=== PATIENT | female | born 1930 | race Two or more races ===

== ENCOUNTER 2017-04-24 21:21 | Inpatient (IN) | payer OTHER ==
[~2017-04-24] VITALS: Ht 149.9 cm; Wt 54.4 kg
[~2017-04-24 21:21] MED LIST: Acetaminophen PO; Benazepril Hcl PO; TRAM50TA2 PO
--- NOTE | 2017-04-24 22:45 | NUR ---
Pt c/o cough, sore throat, congestion x 3 days. Pt denies CP, SOB, dizziness, n/v, no other complaints, no distress noted.
[2017-04-24] MEDS ORDERED: CELE200C PO (23:09)
[2017-04-24 23:19] LABS: BASOPHILS % (AUTO) 0.3 % (0.0-2.0); HEMOGLOBIN 12.9 g/dL (10.9-14.3); LYMPHOCYTES # (AUTO) 0.6 K/uL (20.0-40.0); LYMPHOCYTES % (AUTO) 9.8 % (20.5-51.5); MEAN CORPUSCULAR HEMOGLOBIN 31.3 uug (24.7-32.8); MEAN CORPUSCULAR HGB CONC 34 g/dL (32.3-35.6); MONOCYTES # (AUTO) 0.5 K/uL (2.0-10.0); MONOCYTES % (AUTO) 7.5 % (0.0-11.0); NEUTROPHILS # (AUTO) 5.3 K/uL (1.8-8.9); NEUTROPHILS % (AUTO) 82.4 % (38.5-71.5); PLATELET COUNT (AUTO) 92 K/uL (179-408); RED BLOOD CELL COUNT(AUTO) 4.13 MIL/uL (3.63-4.92); WHITE BLOOD COUNT (AUTO) 6.4 K/uL (3.8-11.8)
[2017-04-24 23:27] LABS: CARBON DIOXIDE 23 mmol/L (21-32); CHLORIDE 105 mmol/L (98-107); GLUCOSE 101 mg/dL (74-106); POTASSIUM 3.9 mmol/L (3.5-5.1); UREA NITROGEN, BLOOD 22 mg/dL (7-18)
[2017-04-24 23:41] LABS: ALANINE AMINOTRANSFERASE 20 U/L (14-59); ALKALINE PHOSPHATASE 78 U/L (50-136); ASPARTATE AMINOTRANSFERASE 29 U/L (15-37); BILIRUBIN,DIRECT 0.1 mg/dL (0.0-0.2); BILIRUBIN,TOTAL 0.5 mg/dL (0.2-1.0); TOTAL PROTEIN, SERUM 6.8 g/dL (6.4-8.2)
[2017-04-25] MEDS ORDERED: ASPIRIN 325 MG TABLET ONE (00:22)
[2017-04-25 00:30] LABS: BAND % (MANUAL) 13 % (0-10); LYMPHOCYTES % (MANUAL) 7 % (20-40); MONOCYTES % (MANUAL) 8 % (2-10); NEUTROPHILS % (MANUAL) 72 % (42-75)
[2017-04-25 00:34] LABS: *BILIRUBIN,URIN NEGATIVE (NEGATIVE); *BLOOD, URINE 1+ (NEGATIVE); *CLARITY,URINE CLEAR (CLEAR); *COLOR,URINE STRAW (YELLOW); *KETONES,URINE NEGATIVE (NEGATIVE); *PROTEIN,URINE NEGATIVE (NEGATIVE); *UROBILINOGEN,URINE 0.2 E.U./dl (NORMAL); LEUKOCYTE ESTERASE ,URINE NEGATIVE (NEGATIVE); NITRITE, URINE NEGATIVE (NEGATIVE); PH,URINE 5.5 (5.0-8.0); UGLUCOSE NEGATIVE (NEGATIVE)
[2017-04-25 00:44] LABS: BACTERIA,URINE MANY /HPF (NONE SEEN); RBC,URINE 0-3 /HPF (0-3); SQUAMOUS EPITHELIAL CELL,UR FEW /HPF (NONE SEEN)
[2017-04-25] MEDS ORDERED: LEVOFLOXACIN 750 MG/D5W 150 ML PIGGYBACK IV ONE (00:45)
[2017-04-25] MEDS ORDERED: LEVOFLOXACIN 750MG/D5W 150 ML IV ONE (01:09)
--- NOTE | 2017-04-25 01:10 | NUR ---
Gave report to Mayelin.
[2017-04-25] MEDS ORDERED: LEVOFLOXACIN 500 MG/D5W 500 MG in PREMIXED 1 EACH IV SCH (01:15)
[2017-04-25] MEDS ORDERED: ASPIRIN 325 MG TABLET PO ONE ×2 (01:15)
[2017-04-25] MEDS ORDERED: ONDANSETRON 4 MG/2 ML VIAL IV PRN (01:15)
[2017-04-25] MEDS ORDERED: Medication Not On Formulary EA ([Acetaminophen] (Tylenol) 650 MG) PO PRN (01:15)
[2017-04-25] MEDS ORDERED: MAGNESIUM HYDROXIDE 30 ML LIQUID UDC PO PRN (01:15)
[2017-04-25] MEDS ORDERED: ACETAMINOPHEN 325 MG TABLET PO PRN (01:15)
--- NOTE | 2017-04-25 01:40 | NUR ---
Son of pt. Sam Carlin [phone]
[2017-04-25 03:00] VITALS: BP 118/65
--- NOTE | 2017-04-25 03:06 | NUR ---
admitted female with chief complaint of cough,alertx2. telemetry sinus rhythm.oriented to floor by Aide. speaks divehi.oriented to room.
[2017-04-25 04:00] VITALS: BP 117/54
[2017-04-25 07:06] LABS: BASOPHILS % (AUTO) 0.2 % (0.0-2.0); HEMATOCRIT 37.3 % (31.2-41.9); HEMOGLOBIN 12.7 g/dL (10.9-14.3); LYMPHOCYTES % (AUTO) 16.9 % (20.5-51.5); MEAN CORPUSCULAR HEMOGLOBIN 31.4 uug (24.7-32.8); MEAN CORPUSCULAR HGB CONC 34 g/dL (32.3-35.6); MONOCYTES # (AUTO) 0.6 K/uL (2.0-10.0); MONOCYTES % (AUTO) 9.4 % (0.0-11.0); NEUTROPHILS # (AUTO) 4.5 K/uL (1.8-8.9); NEUTROPHILS % (AUTO) 73.5 % (38.5-71.5); PLATELET COUNT (AUTO) 85 K/uL (179-408); RED BLOOD CELL COUNT(AUTO) 4.05 MIL/uL (3.63-4.92); WHITE BLOOD COUNT (AUTO) 6.2 K/uL (3.8-11.8)
[2017-04-25 07:26] LABS: ALANINE AMINOTRANSFERASE 13 U/L (14-59); ALKALINE PHOSPHATASE 68 U/L (50-136); ASPARTATE AMINOTRANSFERASE 28 U/L (15-37); BILIRUBIN,TOTAL 0.6 mg/dL (0.2-1.0); CARBON DIOXIDE 22 mmol/L (21-32); CHLORIDE 107 mmol/L (98-107); CHOLESTEROL 160 mg/dL (<200); GLUCOSE 96 mg/dL (74-106); HDL CHOLESTEROL 91 mg/dL (40-60); MAGNESIUM 1.7 mg/dL (1.8-2.4); PHOSPHOROUS 2.7 mg/dL (2.5-4.9); POTASSIUM 4.4 mmol/L (3.5-5.1); TOTAL PROTEIN, SERUM 6.5 g/dL (6.4-8.2); TRIGLYCERIDES 65 MG/DL (30-150); UREA NITROGEN, BLOOD 20 mg/dL (7-18)
[2017-04-25 07:27] LABS: THYROID STIMULATING HORMONE 0.976 mIU/mL (0.358-3.740)
--- NOTE | 2017-04-25 08:00 | NUR ---
AWAKE ALERT COOPERATIVE WITH LANGUAGE BARRIER FED SELF BREAKFAST WITH FAIR APPETITE.ON ROOM AIR WITH NO SHORTNESS OF BREATH AT THIS TIME.MAX ASSIST ALANA WELL.WILL CONTINUE TO OBSERVE.
[2017-04-25] MEDS ORDERED: CELECOXIB 200 MG CAPSULE PO SCH (09:00)
[2017-04-25] MEDS ORDERED: BENAZEPRIL PO SCH (09:00)
[2017-04-25] MEDS ORDERED: CELECOXIB 200 MG CAPSULE PO PRN (10:45)
[2017-04-25 11:28] VITALS: BP 112/59
[2017-04-25] MEDS: BENAZEPRIL HCL 5 MG TABLET PO SCH ×2 (11:54→21:36)
[2017-04-25] MEDS: METOPROLOL TARTRATE 25 MG TABLET PO SCH ×2 (11:54→21:37)
[2017-04-25] MEDS: ASPIRIN 81 MG TAB.CHEW PO SCH (11:54)
--- NOTE | 2017-04-25 12:30 | NUR ---
MAGNESSIUM LEVEL IS 1.7 PATIENT SEEN AND EXAMINED BY DR GANT WITH REPLACEMENT ORDER AND NOTED.
[2017-04-25] MEDS ORDERED: MAGNESIUM OXIDE 400 MG TABLET PO ONE (13:00)
--- NOTE | 2017-04-25 14:00 | NUR ---
2D ECHO IS 50-55 % EF PATIENT DENIES CHEST PAIN FAMILY AT THE BEDSIDE.
[2017-04-25 16:10] VITALS: BP 146/73
--- NOTE | 2017-04-25 18:08 | NUR ---
RESTING WITH HER SON AT THE BEDSIDE DENIES PAIN OR DISCOMFORTS ON ROOM AIR WITH NO SHORTNESS OF BREATH AMBULATORY WITH HER CANE WITH SLOW STEADY GAIT WILL CONTINUE TO OBSERVE.
[2017-04-25 20:06] VITALS: BP 124/67
[2017-04-25] MEDS ORDERED: DOCUSATE SODIUM 100 MG CAPSULE PO SCH (21:00)
[2017-04-25] MEDS: HYDROCODONE/APAP 5-325MG TABLET PO PRN (21:41)
[2017-04-26] VITALS: BP 102/51
[2017-04-26] MEDS ORDERED: LEVOFLOXACIN 250MG /D5W 250 MG in PREMIXED 1 EACH IV SCH (01:00)
[2017-04-26 04:00] VITALS: BP 94/60
[2017-04-26] MEDS: HYDROCODONE/APAP 5-325MG TABLET PO PRN (05:31)
[2017-04-26 06:52] LABS: CARBON DIOXIDE 23 mmol/L (21-32); CHLORIDE 106 mmol/L (98-107); GLUCOSE 88 mg/dL (74-106); MAGNESIUM 1.9 mg/dL (1.8-2.4); UREA NITROGEN, BLOOD 19 mg/dL (7-18)
[2017-04-26] MEDS: ASPIRIN 81 MG TAB.CHEW PO SCH (08:59)
[2017-04-26] MEDS: METOPROLOL TARTRATE 25 MG TABLET PO SCH (09:00)
[2017-04-26] MEDS: BENAZEPRIL HCL 5 MG TABLET PO SCH (09:01)
--- NOTE | 2017-04-26 09:38 | NUR ---
IN BED EATING BREAKFAST WITH NO SHORTNESS OF BREATH AT THIS TIME SEEMS COMFORTABLE WITH LANGUAGE BARRIER DUE MEDICATIONS GIVEN MADE COMFORTABLE AND WILL CONTINUE TO OBSERVE.
[2017-04-26] MEDS ORDERED: LEVO500T2 PO (10:37)
--- NOTE | 2017-04-26 10:48 | NUR ---
NEW ORDERS NOTED TO DISCHARGE PATIENT HOME TODAY IF OKAY WITH THE HEEL EMERY BUFFER FAMILY HERE AND AWARE.
[2017-04-26 12:18] VITALS: BP 97/57
[2017-04-26 15:16] VITALS: BP 115/63
--- NOTE | 2017-04-26 16:36 | NUR ---
PATIENT SEEN BY THE SHEET METAL WORKER DR NGUYEN WITH OKAY TO DISCHARGE PATIENT HOME TODAY.
--- NOTE | 2017-04-26 17:15 | NUR ---
PATIENT DISCHARGED PICKED UP BY HIS SON IN LAW STATED THAT TANA PATIENTS SON AWARE THAT HE IS PICKING HER UP DISCHARGE INSTRUCTIONS AND PRESCRIPTIONS GIVEN TO PATIENT AND HER SON IN LAW AND WAS INSTRUCTED TO CALL HER EDGE BANDING OFF BEARER FOR A FOLLOW UP APPOINTMENT WITHIN THE NEXT ONE TO TWO WEEKS AND THEY EXPRESSED UNDERSTANDING.
== END 2017-04-26 17:15 | disposition home or self-care (01) | DRG 280 ==
LOC: ER 21:21 → TELE 04-25 01:32 → MED 04-26 14:15
PROVIDERS: ADMIT Internal Medicine; ATTEND Internal Medicine
DX: I21.4 Non-ST elevation (NSTEMI) myocardial infarction (principal); I50.33 Acute on chronic diastolic (congestive) heart failure; R06.09 Other forms of dyspnea; D69.6 Thrombocytopenia, unspecified; J70.5 Respiratory conditions due to smoke inhalation; N39.0 Urinary tract infection, site not specified; I11.0 Hypertensive heart disease with heart failure; B96.1 Klebsiella pneumoniae [K. pneumoniae] as the cause of diseases classified elsewhere; G31.84 Mild cognitive impairment of uncertain or unknown etiology; I25.10 Atherosclerotic heart disease of native coronary artery without angina pectoris; M19.90 Unspecified osteoarthritis, unspecified site; Z90.49 Acquired absence of other specified parts of digestive tract
CPT/HCPCS: 36415; 70030-TC; 71010; 83605; 83735; 84100; 84443; 85025; 85730; 87040; 87077; 87086; 87400; 93005; 93307; A4663; J1956

== ENCOUNTER 2018-03-17 17:09 | Emergency (ER) | payer OTHER ==
[~2018-03-17] VITALS: Ht 147.3 cm; Wt 58.1 kg
[~2018-03-17 17:09] MED LIST changes: +CELE200C PO; +LEVO500T2 PO
[2018-03-17 18:30] LABS: *BILIRUBIN,URIN NEGATIVE (NEGATIVE); *BLOOD, URINE Trace-lysed (NEGATIVE); *COLOR,URINE LIGHT YELLOW (YELLOW); *KETONES,URINE NEGATIVE (NEGATIVE); *PROTEIN,URINE NEGATIVE (NEGATIVE); *UROBILINOGEN,URINE 0.2 E.U./dl (NORMAL); LEUKOCYTE ESTERASE ,URINE TRACE (NEGATIVE); NITRITE, URINE NEGATIVE (NEGATIVE); PH,URINE 6.5 (5.0-8.0); UGLUCOSE NEGATIVE (NEGATIVE)
[2018-03-17 18:39] LABS: *CLARITY,URINE SLIGHTLY HAZY (CLEAR)
[2018-03-17 18:41] LABS: BACTERIA,URINE MANY /HPF (NONE SEEN); MUCUS,URINE FEW /LPF (0-FEW); SQUAMOUS EPITHELIAL CELL,UR FEW /HPF (NONE SEEN)
--- NOTE | 2018-03-17 18:52 | NUR ---
patient presents to er with family c/o left side back neck pain x3 weeks no injury able to move neck side to side, report generalized weakness ambulate with a cane.
--- NOTE | 2018-03-17 19:09 | NUR ---
report endorsed to nurse Tran.
--- NOTE | 2018-03-17 19:10 | NUR ---
Assumed care of patient. Patient remains in bed, no acute distress noted. Pending imaging results at this time. Will continue to monitor patient.
[2018-03-17 19:30] LABS: BASOPHILS # (AUTO) 0.1 K/uL (0.0-8.0); BASOPHILS % (AUTO) 1.3 % (0.0-2.0); EOSINOPHILS # (AUTO) 0.1 K/uL (0.0-0.7); EOSINOPHILS % (AUTO) 1.5 % (0.0-7.0); HEMATOCRIT 40.3 % (31.2-41.9); HEMOGLOBIN 13.6 g/dL (10.9-14.3); LYMPHOCYTES # (AUTO) 1.5 K/uL (20.0-40.0); LYMPHOCYTES % (AUTO) 28.2 % (20.5-51.5); MEAN CORPUSCULAR HEMOGLOBIN 32.2 uug (24.7-32.8); MEAN CORPUSCULAR HGB CONC 34 g/dL (32.3-35.6); MEAN CORPUSCULAR VOLUME 95.1 fL (75.5-95.3); MONOCYTES # (AUTO) 0.6 K/uL (2.0-10.0); MONOCYTES % (AUTO) 11.9 % (0.0-11.0); NEUTROPHILS # (AUTO) 3.1 K/uL (1.8-8.9); NEUTROPHILS % (AUTO) 57.1 % (38.5-71.5); PLATELET COUNT (AUTO) 134 K/uL (179-408); RED BLOOD CELL COUNT(AUTO) 4.23 MIL/uL (3.63-4.92); WHITE BLOOD COUNT (AUTO) 5.5 K/uL (3.8-11.8)
[2018-03-17 19:36] LABS: CARBON DIOXIDE 27 mmol/L (21-32); CHLORIDE 105 mmol/L (98-107); GLUCOSE 107 mg/dL (74-106); POTASSIUM 4.6 mmol/L (3.5-5.1); UREA NITROGEN, BLOOD 21 mg/dL (7-18)
--- NOTE | 2018-03-17 20:04 | NUR ---
Patient discharged to home in stable conditon. Written and verbal after care instructions given. Patient verbalizes understanding of instructions.Ambulated from ER with stable gait. All belongings with patient. VSS
[2018-03-17 20:05] VITALS: BP 137/78
== END 2018-03-17 20:05 | disposition home or self-care (01) ==
LOC: ER 17:09
DX: R53.1 Weakness (principal); G47.00 Insomnia, unspecified; I25.10 Atherosclerotic heart disease of native coronary artery without angina pectoris; I11.0 Hypertensive heart disease with heart failure; I50.9 Heart failure, unspecified; Z95.0 Presence of cardiac pacemaker; Z90.49 Acquired absence of other specified parts of digestive tract
CPT/HCPCS: 36415; 71045; 85025; A4663

== ENCOUNTER 2018-05-16 15:47 | Inpatient (IN) | payer MEDICARE, OTHER ==
[~2018-05-16] VITALS: Ht 147.3 cm; Wt 51.7 kg
[~2018-05-16 15:47] MED LIST changes: -Acetaminophen PO; -CELE200C PO; -LEVO500T2 PO; -TRAM50TA2 PO
--- NOTE | 2018-05-16 16:33 | NUR ---
Dr samaniego at the bedside for MSE.
--- NOTE | 2018-05-16 16:40 | NUR ---
Pt is Turkish speakingonly, family translate.
[2018-05-16 17:05] LABS: BASOPHILS % (AUTO) 0.6 % (0.0-2.0); EOSINOPHILS # (AUTO) 0.1 K/uL (0.0-0.7); HEMATOCRIT 39.9 % (31.2-41.9); HEMOGLOBIN 13.4 g/dL (10.9-14.3); LYMPHOCYTES % (AUTO) 19.5 % (20.5-51.5); MEAN CORPUSCULAR HEMOGLOBIN 31.8 uug (24.7-32.8); MEAN CORPUSCULAR HGB CONC 34 g/dL (32.3-35.6); MEAN CORPUSCULAR VOLUME 94.8 fL (75.5-95.3); MONOCYTES # (AUTO) 0.4 K/uL (2.0-10.0); MONOCYTES % (AUTO) 7.5 % (0.0-11.0); NEUTROPHILS # (AUTO) 3.8 K/uL (1.8-8.9); NEUTROPHILS % (AUTO) 71.4 % (38.5-71.5); PLATELET COUNT (AUTO) 141 K/uL (179-408); WHITE BLOOD COUNT (AUTO) 5.3 K/uL (3.8-11.8)
[2018-05-16 17:26] LABS: CARBON DIOXIDE 26 mmol/L (21-32); CHLORIDE 106 mmol/L (98-107); GLUCOSE 134 mg/dL (74-106); POTASSIUM 4.2 mmol/L (3.5-5.1); UREA NITROGEN, BLOOD 20 mg/dL (7-18)
[2018-05-16 17:39] LABS: ALANINE AMINOTRANSFERASE 16 U/L (14-59); ALKALINE PHOSPHATASE 71 U/L (50-136); ASPARTATE AMINOTRANSFERASE 16 U/L (15-37); BILIRUBIN,DIRECT 0.2 mg/dL (0.0-0.2); BILIRUBIN,TOTAL 0.8 mg/dL (0.2-1.0); TOTAL PROTEIN, SERUM 7.2 g/dL (6.4-8.2)
[2018-05-16] MEDS ORDERED: ASPIRIN 325 MG TABLET PO ONE (18:00)
[2018-05-16] MEDS ORDERED: ASPIRIN 325 MG TABLET ONE (18:06)
--- NOTE | 2018-05-16 18:57 | NUR ---
RECEIVED PATIENT FROM ED FOR ADMISSION 88 YEARS OLD FEMALE WITH DX OF NON STEMI WITH CHEST PAIN PLACED INTO BED FIXED AND MADE COMFORTABLE PATIENT IS ALERT BUT SPEAKS ONLY LATVIAN HER TWO SONS ARE IN THE ROOM ENDORSED THE ADMISSION OF THIS PATIENT TO ONCOMING SHIFT.
--- NOTE | 2018-05-16 19:30 | NUR ---
NSG: PT RECEIVED A/O X 4, NO ACUTE DISTRESS NOTED. DENIES DISCOMFORT. TELE, ATRIAL PACED. AMBULATORY WITH ASSIST. FAMILY AT THE BEDSIDE. CONT TO MONITOR.
[2018-05-16 20:00] VITALS: BP 154/78
[2018-05-16] MEDS ORDERED: ONDANSETRON 4 MG/2 ML VIAL IV PRN (20:00)
[2018-05-16] MEDS ORDERED: Z GUARD REMEDY PASTE 57 GM TUBE TOP PRN (20:00)
[2018-05-16] MEDS ORDERED: ACETAMINOPHEN 325 MG TABLET PO PRN (20:00)
[2018-05-16 20:40] VITALS: BP 154/78
[2018-05-16] MEDS: ATORVASTATIN 20 MG TABLET PO SCH (20:54)
[2018-05-16] MEDS: ENOXAPARIN SODIUM 40 MG/0.4 ML DISP.SYRIN SQ SCH (20:55)
[2018-05-16] MEDS: IV NS 1000 ML 1,000 ML IV PRN (21:01)
[2018-05-17 00:12] VITALS: BP 110/54
[2018-05-17 00:26] VITALS: BP 110/54
[2018-05-17 05:33] VITALS: BP 137/67
--- NOTE | 2018-05-17 06:00 | NUR ---
NSG: NO CHANGE IN CONDITION. ALL NEEDS ATTENDED. TELE, APACING. CONT TO MONITOR.
[2018-05-17 06:14] LABS: IRON, SERUM 91 ug/dL (50-175)
[2018-05-17 06:25] LABS: ALANINE AMINOTRANSFERASE 17 U/L (14-59); ALKALINE PHOSPHATASE 56 U/L (50-136); ASPARTATE AMINOTRANSFERASE 16 U/L (15-37); CARBON DIOXIDE 25 mmol/L (21-32); CHLORIDE 108 mmol/L (98-107); CHOLESTEROL 180 mg/dL (<200); CREATININE 0.9 mg/dL (0.6-1.3); GLUCOSE 86 mg/dL (74-106); HDL CHOLESTEROL 70 mg/dL (40-60); MAGNESIUM 1.9 mg/dL (1.8-2.4); PHOSPHOROUS 3.2 mg/dL (2.5-4.9); POTASSIUM 3.7 mmol/L (3.5-5.1); TOTAL PROTEIN, SERUM 6.3 g/dL (6.4-8.2); TRIGLYCERIDES 75 MG/DL (30-150); UREA NITROGEN, BLOOD 16 mg/dL (7-18)
[2018-05-17 06:29] LABS: THYROID STIMULATING HORMONE 1.495 mIU/mL (0.358-3.740)
[2018-05-17 06:55] LABS: BASOPHILS # (AUTO) 0.1 K/uL (0.0-8.0); BASOPHILS % (AUTO) 1.2 % (0.0-2.0); EOSINOPHILS # (AUTO) 0.2 K/uL (0.0-0.7); HEMATOCRIT 36.6 % (31.2-41.9); HEMOGLOBIN 12.4 g/dL (10.9-14.3); LYMPHOCYTES # (AUTO) 1.5 K/uL (20.0-40.0); LYMPHOCYTES % (AUTO) 34.9 % (20.5-51.5); MEAN CORPUSCULAR HEMOGLOBIN 32.2 uug (24.7-32.8); MEAN CORPUSCULAR HGB CONC 34 g/dL (32.3-35.6); MEAN CORPUSCULAR VOLUME 94.7 fL (75.5-95.3); MONOCYTES # (AUTO) 0.4 K/uL (2.0-10.0); MONOCYTES % (AUTO) 10.6 % (0.0-11.0); NEUTROPHILS # (AUTO) 2.1 K/uL (1.8-8.9); NEUTROPHILS % (AUTO) 49.3 % (38.5-71.5); PLATELET COUNT (AUTO) 131 K/uL (179-408); RED BLOOD CELL COUNT(AUTO) 3.87 MIL/uL (3.63-4.92); WHITE BLOOD COUNT (AUTO) 4.2 K/uL (3.8-11.8)
[2018-05-17] MEDS: IV NS 1000 ML 1,000 ML IV PRN (07:12)
--- NOTE | 2018-05-17 08:00 | NUR ---
Pt occitan speaking but able to make her needs known. Right arm weakness noted and bulging (skin/CYST) on right deltoid present and family states "Shes had that for a long time." Pt denies any c/o pain. Call light is within reach.
[2018-05-17] MEDS: ASPIRIN EC 81 MG TABLET.DR PO SCH (08:39)
[2018-05-17] MEDS: BENAZEPRIL HCL 5 MG TABLET PO SCH (08:41)
--- NOTE | 2018-05-17 10:00 | NUR ---
IV restarted on left wrist #20 gauge. Family states that pt has new onset of [place]. Pt describes her hearing sound further that it was before. Pt denies any double vision. Pt tolerated physical therapy using FWW.
[2018-05-17 11:07] VITALS: BP 116/60
[2018-05-17 15:33] VITALS: BP 112/55
--- NOTE | 2018-05-17 18:00 | NUR ---
Pt is in no acute distress. Call light is within reach.
[2018-05-17 19:00] VITALS: BP 112/57
--- NOTE | 2018-05-17 19:25 | NUR ---
RECEIVED PT WITH NO ACUTE DISTRESS. IV INTACT. CALL LIGHT WITHIN REACH. BED ALARM ON AND IN LOW POSITION. SAFETY AND COMFORT PROVIDED. WILL CONTINUE TO MONITOR.
[2018-05-17] MEDS: ATORVASTATIN 20 MG TABLET PO SCH (20:43)
[2018-05-17] MEDS: ENOXAPARIN SODIUM 40 MG/0.4 ML DISP.SYRIN SQ SCH (20:43)
[2018-05-18] VITALS: BP 132/63
[2018-05-18] MEDS: IV NS 1000 ML 1,000 ML IV PRN (01:39)
[2018-05-18 04:00] VITALS: BP 106/50
--- NOTE | 2018-05-18 06:12 | NUR ---
PT SLEPT THROUGHOUT THE SHIFT. PT SHOWS NO SIGNS OF ACUTE DISTRESS. IV INTACT. PRESCRIBED MEDICATION GIVEN AND PT TOLERATED IT WELL.SAFETY AND COMFORT PROVIDED.WILL ENDORSE ACCORDINGLY TO INCOMING NURSE FOR CONTINUITY OF CARE.
[2018-05-18 06:51] LABS: BASOPHILS # (AUTO) 0.1 K/uL (0.0-8.0); BASOPHILS % (AUTO) 1.3 % (0.0-2.0); EOSINOPHILS # (AUTO) 0.2 K/uL (0.0-0.7); EOSINOPHILS % (AUTO) 4.4 % (0.0-7.0); HEMATOCRIT 38.8 % (31.2-41.9); LYMPHOCYTES # (AUTO) 1.8 K/uL (20.0-40.0); LYMPHOCYTES % (AUTO) 36.6 % (20.5-51.5); MEAN CORPUSCULAR HEMOGLOBIN 31.9 uug (24.7-32.8); MEAN CORPUSCULAR HGB CONC 34 g/dL (32.3-35.6); MEAN CORPUSCULAR VOLUME 94.8 fL (75.5-95.3); MONOCYTES # (AUTO) 0.5 K/uL (2.0-10.0); MONOCYTES % (AUTO) 9.9 % (0.0-11.0); NEUTROPHILS # (AUTO) 2.3 K/uL (1.8-8.9); NEUTROPHILS % (AUTO) 47.8 % (38.5-71.5); PLATELET COUNT (AUTO) 93 K/uL (179-408); RED BLOOD CELL COUNT(AUTO) 4.09 MIL/uL (3.63-4.92); WHITE BLOOD COUNT (AUTO) 4.8 K/uL (3.8-11.8)
[2018-05-18 06:52] LABS: CARBON DIOXIDE 25 mmol/L (21-32); CHLORIDE 110 mmol/L (98-107); CREATININE 0.8 mg/dL (0.6-1.3); GLUCOSE 85 mg/dL (74-106); POTASSIUM 3.7 mmol/L (3.5-5.1); UREA NITROGEN, BLOOD 11 mg/dL (7-18)
--- NOTE | 2018-05-18 07:39 | NUR ---
patient resting comfortably in bed at this time. pacemaker left chest wall. no signs of distress. no complaints of chest pain at this time. stable. will continue to monitor throughout shift. bed alarm on, call light within reach. walker/cane at bedside.
[2018-05-18] MEDS: BENAZEPRIL HCL 5 MG TABLET PO SCH (08:54)
[2018-05-18] MEDS: ASPIRIN EC 81 MG TABLET.DR PO SCH (08:54)
[2018-05-18 10:02] LABS: LYMPHOCYTES % (MANUAL) 35 % (20-40); MONOCYTES % (MANUAL) 13 % (2-10); NEUTROPHILS % (MANUAL) 52 % (42-75)
[2018-05-18 10:52] VITALS: BP 119/58
[2018-05-18 15:39] VITALS: BP 137/71
[2018-05-18 15:44] VITALS: BP 119/59
--- NOTE | 2018-05-18 18:25 | NUR ---
patient in stable condition. no complaint of chest pain. no complaints of respiratory distress. sinus rhythm with occasional BBB and a-pacing. uses walker and assistance for ambulation. A/ox4. no significant changes throughout shift. ivf running. bed alarm on, call light within reach.
[2018-05-18 19:00] VITALS: BP 132/66
--- NOTE | 2018-05-18 19:38 | NUR ---
PATIENT IS AWAKE IN BED, AAOX3 MAINLY MALAWIAN SPEAKING. DENIES CHEST PAIN/SOB/ANY DISTRESS ON ASSESSMENT. SR ON TELE, SAFETY MEASURES IN PLACE. CALL LIGHT WITHIN PATIENT'S REACH
[2018-05-18] MEDS: ENOXAPARIN SODIUM 40 MG/0.4 ML DISP.SYRIN SQ SCH (20:00)
[2018-05-18] MEDS: ATORVASTATIN 20 MG TABLET PO SCH (20:12)
[2018-05-19] VITALS: BP 132/64
[2018-05-19 04:00] VITALS: BP 110/62
--- NOTE | 2018-05-19 06:17 | NUR ---
PATIENT SLEPT WELL THROUGHOUT THE SHIFT. NO S/S OF PAIN OR ACUTE DISTRESS ON THIS SHIFT. NO FURTHER CHANGES IN STATUS
[2018-05-19 07:00] LABS: BASOPHILS % (AUTO) 0.9 % (0.0-2.0); EOSINOPHILS # (AUTO) 0.2 K/uL (0.0-0.7); EOSINOPHILS % (AUTO) 3.7 % (0.0-7.0); HEMATOCRIT 35.1 % (31.2-41.9); LYMPHOCYTES # (AUTO) 1.4 K/uL (20.0-40.0); LYMPHOCYTES % (AUTO) 31.6 % (20.5-51.5); MEAN CORPUSCULAR HEMOGLOBIN 32.3 uug (24.7-32.8); MEAN CORPUSCULAR HGB CONC 34 g/dL (32.3-35.6); MEAN CORPUSCULAR VOLUME 94.2 fL (75.5-95.3); MONOCYTES # (AUTO) 0.5 K/uL (2.0-10.0); MONOCYTES % (AUTO) 10.3 % (0.0-11.0); NEUTROPHILS # (AUTO) 2.4 K/uL (1.8-8.9); NEUTROPHILS % (AUTO) 53.5 % (38.5-71.5); RED BLOOD CELL COUNT(AUTO) 3.73 MIL/uL (3.63-4.92); WHITE BLOOD COUNT (AUTO) 4.6 K/uL (3.8-11.8)
[2018-05-19 07:09] LABS: CARBON DIOXIDE 24 mmol/L (21-32); CHLORIDE 112 mmol/L (98-107); CREATININE 0.8 mg/dL (0.6-1.3); GLUCOSE 82 mg/dL (74-106); POTASSIUM 3.2 mmol/L (3.5-5.1); UREA NITROGEN, BLOOD 8 mg/dL (7-18)
[2018-05-19 07:24] LABS: PLATELET COUNT (AUTO) 126 K/uL (179-408)
--- NOTE | 2018-05-19 07:35 | NUR ---
PATIENT RESTING COMFORTABLY IN BED AT THIS TIME. NO SIGNS OF DISTRESS. STABLE CONDITION. IVF RUNNING. NO COMPLAINTS OF CHEST PAIN. NO SOB.
[2018-05-19 07:57] VITALS: BP 138/69
[2018-05-19 08:05] VITALS: BP 138/69
[2018-05-19] MEDS: ASPIRIN EC 81 MG TABLET.DR PO SCH (08:05)
[2018-05-19] MEDS: BENAZEPRIL HCL 5 MG TABLET PO SCH (08:05)
[2018-05-19] MEDS ORDERED: ASPI-618 PO (09:07)
--- NOTE | 2018-05-19 11:02 | NUR ---
PATIENT DISCHARGED AT THIS TIME IN STABLE CONDITION. VITAL SIGNS STABLE. NO SIGNS OF DISTRESS. NO SOB NOTED. DISCHARGE INSTRUCTIONS/EDUCATION PROVIDED TO PATIENT AND PATIENT'S SON TANA. IV-DISCONNECTED, ID-BAND TAKEN OFF. TELEMETRY BOX RETURNED. PATIENT DISCHARGED FROM [facility].
== END 2018-05-19 11:02 | disposition home health service (06) | DRG 69 ==
LOC: ER 16:41 → TELE 18:40
PROVIDERS: ADMIT Nurse Practitioner Acute Care; ATTEND Family Medicine
DX: G45.9 Transient cerebral ischemic attack, unspecified (principal); N17.0 Acute kidney failure with tubular necrosis; I21.A1 Myocardial infarction type 2; I50.32 Chronic diastolic (congestive) heart failure; I25.10 Atherosclerotic heart disease of native coronary artery without angina pectoris; G31.84 Mild cognitive impairment of uncertain or unknown etiology; Z95.0 Presence of cardiac pacemaker; I11.0 Hypertensive heart disease with heart failure; G89.29 Other chronic pain; I27.20 Pulmonary hypertension, unspecified; M17.0 Bilateral primary osteoarthritis of knee; I25.2 Old myocardial infarction; Z90.49 Acquired absence of other specified parts of digestive tract; H91.90 Unspecified hearing loss, unspecified ear
CPT/HCPCS: 36415; 70030-TC; 70450; 71045; 72125; 83550; 83605; 83735; 84100; 84443; 85025; 85730; 87040; 92610; 93005; 93307; 93880; 97110; 97116; 97530; A4663; G0378; J1650; J7030

== ENCOUNTER 2018-06-02 15:35 | Inpatient (IN) | payer MEDICARE, MEDICAID ==
[~2018-06-02] VITALS: Ht 152.4 cm; Wt 50.8 kg
[~2018-06-02 15:35] MED LIST changes: +ASPI-618 PO
[2018-06-02] MEDS ORDERED: NITROGLYCERIN 0.4 MG/TAB BOTTLE SL ONE ×2 (15:45→15:55)
[2018-06-02] MEDS ORDERED: ASPIRIN 325 MG TABLET PO ONE (15:45)
[2018-06-02] MEDS ORDERED: ASPIRIN 81 MG TAB.CHEW ONE (15:57)
[2018-06-02] MEDS ORDERED: ASPIRIN 81 MG TAB.CHEW PO ONE ×2 (16:00)
--- NOTE | 2018-06-02 16:11 | NUR ---
PT IS IN ROOM #2A. DR CORBIN EVALUATED THE PT.
[2018-06-02 16:14] LABS: BASOPHILS # (AUTO) 0.1 K/uL (0.0-8.0); BASOPHILS % (AUTO) 1.5 % (0.0-2.0); EOSINOPHILS # (AUTO) 0.2 K/uL (0.0-0.7); EOSINOPHILS % (AUTO) 3.8 % (0.0-7.0); HEMATOCRIT 39.2 % (31.2-41.9); HEMOGLOBIN 13.4 g/dL (10.9-14.3); LYMPHOCYTES # (AUTO) 2.2 K/uL (20.0-40.0); LYMPHOCYTES % (AUTO) 35.5 % (20.5-51.5); MEAN CORPUSCULAR HEMOGLOBIN 32.6 uug (24.7-32.8); MEAN CORPUSCULAR HGB CONC 34 g/dL (32.3-35.6); MEAN CORPUSCULAR VOLUME 95.3 fL (75.5-95.3); MONOCYTES # (AUTO) 0.4 K/uL (2.0-10.0); MONOCYTES % (AUTO) 6.9 % (0.0-11.0); NEUTROPHILS # (AUTO) 3.3 K/uL (1.8-8.9); NEUTROPHILS % (AUTO) 52.3 % (38.5-71.5); PLATELET COUNT (AUTO) 145 K/uL (179-408); RED BLOOD CELL COUNT(AUTO) 4.11 MIL/uL (3.63-4.92); WHITE BLOOD COUNT (AUTO) 6.2 K/uL (3.8-11.8)
[2018-06-02] MEDS ORDERED: NITROGLYCERIN OINT 1 GM PACKET TP ONE ×2 (16:15→16:16)
[2018-06-02 16:28] LABS: CARBON DIOXIDE 26 mmol/L (21-32); CHLORIDE 105 mmol/L (98-107); GLUCOSE 101 mg/dL (74-106); POTASSIUM 4.3 mmol/L (3.5-5.1); UREA NITROGEN, BLOOD 23 mg/dL (7-18)
[2018-06-02 16:40] LABS: ALANINE AMINOTRANSFERASE 18 U/L (14-59); ALKALINE PHOSPHATASE 81 U/L (50-136); ASPARTATE AMINOTRANSFERASE 20 U/L (15-37); BILIRUBIN,DIRECT 0.2 mg/dL (0.0-0.2); BILIRUBIN,TOTAL 0.9 mg/dL (0.2-1.0); TOTAL PROTEIN, SERUM 7.6 g/dL (6.4-8.2)
[2018-06-02] MEDS ORDERED: MORPHINE SULFATE 4 MG/1 ML DISP.SYRIN ONE (16:55)
[2018-06-02] MEDS ORDERED: ONDANSETRON 4 MG/2 ML VIAL ONE (16:56)
[2018-06-02] MEDS ORDERED: ONDANSETRON 4 MG/2 ML VIAL IV ONE (17:00)
[2018-06-02] MEDS ORDERED: MORPHINE SULFATE 2 MG/1 ML DISP.SYRIN IV ONE (17:00)
--- NOTE | 2018-06-02 18:44 | NUR ---
REPORT WAS GIVEN TO KNOT BORER. PT WAS TRANSFERED TO ROOM #214.
--- NOTE | 2018-06-02 18:45 | NUR ---
ADMITTED FROM HOME VIA ER AN 88 YO FEMALE NIGERIEN SPEAKING ACCOMPANIED BY FAMILY WITH ADM DX OF CHEST PAIN AWAKE ALERT AND ORIENTED X3, ABLE TO ANSWER QUESTIONS APPROPRIATELY BUT NEEDS SCALE SHOOTER. DENIES CHEST PAIN UPON ADMISSION ON THE FLOOR. BP 92/52 PT WAS GIVEN NITRO PASTE IN ER. ROUTINE ADMISSION ASSESSMENT INITIATED. DR CEDENO MADE AWARE OF ADMISSION. SR WITH BBB
[2018-06-02 18:54] VITALS: BP 92/52
[2018-06-02 19:50] VITALS: BP 135/70
[2018-06-02 20:21] VITALS: BP 120/65
[2018-06-02] MEDS ORDERED: NITROGLYCERIN 0.4 MG/TAB BOTTLE SL PRN (20:30)
[2018-06-02] MEDS ORDERED: LORAZEPAM 2 MG/1 ML VIAL IV PRN (20:30)
[2018-06-02] MEDS ORDERED: MAGNESIUM HYDROXIDE 30 ML LIQUID UDC PO PRN (20:30)
[2018-06-02] MEDS ORDERED: ACETAMINOPHEN 325 MG TABLET PO PRN (20:30)
[2018-06-02] MEDS ORDERED: MORPHINE SULFATE 2 MG/1 ML DISP.SYRIN IV PRN (20:30)
[2018-06-02] MEDS ORDERED: ONDANSETRON 4 MG/2 ML VIAL IV PRN (20:30)
[2018-06-02] MEDS ORDERED: ZOLPIDEM 5 MG TABLET PO PRN (20:30)
[2018-06-02] MEDS: MORPHINE SULFATE 4 MG/1 ML DISP.SYRIN IV PRN (20:38)
[2018-06-02] MEDS ORDERED: ISOSORBIDE MONONITRATE 30 MG TAB.SR.24H PO SCH (21:00)
--- NOTE | 2018-06-02 21:30 | NUR ---
PATIENT C/O PAIN AND SOB; RAPID RESPONSE WAS CALLED; STAT EKG DONE AND STAT TROPONIN DONE; PATIENT GIVEN WITH MORPHINE WITH GOOD RESULT; FAMILY AT BEDSIDE; DR OLSEN CAME AND SPOKE TO PATIENT'S FAMILY;
--- NOTE | 2018-06-02 22:00 | NUR ---
TROPONIN LEVEL RELAYED TO DR CEDENO.
[2018-06-02] MEDS: DOCUSATE SODIUM 100 MG CAPSULE PO SCH (22:26)
[2018-06-02] MEDS ORDERED: HEPARIN/D5W DRIP 500 ML IV PRN (23:00)
[2018-06-03] VITALS (7 sets, daily range): BP systolic 82–110; BP diastolic 46–69
[2018-06-03] MEDS ORDERED: HEPARIN SODIUM,PORCINE 5,000 UNITS/ML VIAL IVP ONE (00:15)
[2018-06-03] MEDS ORDERED: HEPARIN/D5W DRIP 500 ML IV PRN (00:15)
[2018-06-03] MEDS ORDERED: HEPARIN/D5W DRIP 500 ML ONE (00:29)
--- NOTE | 2018-06-03 01:00 | NUR ---
HEPARIN BOLUS GIVEN SEE MAR; HEPARIN DRIP STARTED AT 765 UNITS/HR = 15.3 ML/HOUR ORDERED NEXT PTT AT 0700H.
--- NOTE | 2018-06-03 05:02 | NUR ---
2L O2; SR; DENIES PAIN AND PRESSURE; ASSISTED TO MEET HYGIENE NEEDS; URINATED VIA BEDPAN;
[2018-06-03] MEDS: PANTOPRAZOLE SODIUM 40 MG TABLET.DR PO SCH (06:22)
[2018-06-03 06:51] LABS: BASOPHILS % (AUTO) 0.9 % (0.0-2.0); EOSINOPHILS # (AUTO) 0.3 K/uL (0.0-0.7); EOSINOPHILS % (AUTO) 5.3 % (0.0-7.0); HEMATOCRIT 35.6 % (31.2-41.9); HEMOGLOBIN 12.5 g/dL (10.9-14.3); LYMPHOCYTES # (AUTO) 1.8 K/uL (20.0-40.0); LYMPHOCYTES % (AUTO) 35.4 % (20.5-51.5); MEAN CORPUSCULAR HEMOGLOBIN 33.1 uug (24.7-32.8); MEAN CORPUSCULAR HGB CONC 35 g/dL (32.3-35.6); MEAN CORPUSCULAR VOLUME 94.3 fL (75.5-95.3); MONOCYTES # (AUTO) 0.5 K/uL (2.0-10.0); MONOCYTES % (AUTO) 8.7 % (0.0-11.0); NEUTROPHILS # (AUTO) 2.6 K/uL (1.8-8.9); NEUTROPHILS % (AUTO) 49.7 % (38.5-71.5); PLATELET COUNT (AUTO) 131 K/uL (179-408); RED BLOOD CELL COUNT(AUTO) 3.77 MIL/uL (3.63-4.92); WHITE BLOOD COUNT (AUTO) 5.2 K/uL (3.8-11.8)
[2018-06-03 06:55] LABS: ALANINE AMINOTRANSFERASE 13 U/L (14-59); ALKALINE PHOSPHATASE 61 U/L (50-136); ASPARTATE AMINOTRANSFERASE 19 U/L (15-37); BILIRUBIN,TOTAL 1.1 mg/dL (0.2-1.0); CARBON DIOXIDE 31 mmol/L (21-32); CHLORIDE 109 mmol/L (98-107); CHOLESTEROL 172 mg/dL (<200); CREATININE 1.2 mg/dL (0.6-1.3); GLUCOSE 90 mg/dL (74-106); HDL CHOLESTEROL 73 mg/dL (40-60); MAGNESIUM 2.1 mg/dL (1.8-2.4); POTASSIUM 4.4 mmol/L (3.5-5.1); TOTAL PROTEIN, SERUM 6.3 g/dL (6.4-8.2); TRIGLYCERIDES 43 MG/DL (30-150); UREA NITROGEN, BLOOD 22 mg/dL (7-18)
[2018-06-03 07:05] LABS: THYROID STIMULATING HORMONE 1.974 mIU/mL (0.358-3.740)
--- NOTE | 2018-06-03 07:30 | NUR ---
RECEIVED PATIENT LAYING IN BED, ALERT AND ORIENTED AND AWAKE. PATIENT IS CENTRAL AFRICAN SPEAKING. PATIENT IS ON 4L OF OXYGEN VIA NASAL CANNULA. NO SIGNS OF DISTRESS NOTED. PATIENT IS ON TELE MONITOR CALL LIGHT WITHIN REACH, BED IN LOW POSITION BED ALARM ON.
--- NOTE | 2018-06-03 08:00 | NUR ---
PATIENT ON TELE SINUS RHYTHM WITH BUNDLE BRANCH BLOCK. PATIENT ALERT, RESPONSIVE, IN NO DISTRESS, NO CHEST PAIN, NO SOB.
[2018-06-03] MEDS ORDERED: HEPARIN SODIUM,PORCINE 5,000 UNITS/ML VIAL IV PRN (08:15)
[2018-06-03] MEDS ORDERED: SWABABLE VALVE TRANSFER SET EA MC ONE (09:41)
[2018-06-03] MEDS ORDERED: IV NORMAL SALINE 250 ML IV ONE (09:42)
[2018-06-03] MEDS ORDERED: IOHEXOL 350 100 ML INFUS..BTL ONE (09:42)
--- NOTE | 2018-06-03 11:00 | NUR ---
SPOKE TO PRODUCTION FOREMAN ID #[id number] [facility]06[facility] ANGIO OF THE CHEST. OBTAINED CONSENT FROM THE PATIENT.
--- NOTE | 2018-06-03 14:30 | NUR ---
PATIENT'S BP 85/46 HR 80 SINUS RHYTHM ON TELE MONITOR. PATIENT IS RESPONSIVE, IN NO DISTRESS, NO C/O OF CHEST PAIN, SOB. SON AT BEDSIDE. MD NOTIFIED. AWAITING FOR ORDERS. WILL CONTINUE TO MONITOR.
--- NOTE | 2018-06-03 14:50 | NUR ---
PATIENT SEEN BY POWDER COATER. PATIENT RESPONSIVE. FAMILY AT BEDSIDE.
--- NOTE | 2018-06-03 15:13 | NUR ---
D/C HEPARIN DRIP PER MD'S ORDER. REMOVED NITRO PATCH ON LEFT CHEST WALL AND WIPED OFF RESIDUE ON PATIENT'S SKIN PER MD'S ORDER. WILL CONTINUE TO MONITOR VS BP HR.
--- NOTE | 2018-06-03 18:16 | NUR ---
PATIENT IS AWAKE AND ALERT WITH FAMILY AT BEDSIDE. PATIENT HAS NO CHEST PAIN OR SHORTNESS OF BREATH AT THE MOMENT. PATIENT IS ON 2L OF OXYGEN VIA NASAL CANNULA. BED IN LOW POSITION, CALL LIGHT WITHIN REACH.
--- NOTE | 2018-06-03 19:00 | NUR ---
NOTIFIED REGARDING 2D ECHO RESULTED FOR PATIENT. Addendum: 06/03/18 at 1935 by ISH CLEMENTE RN ENDORSED TO YARD INSPECTOR RN.
--- NOTE | 2018-06-03 19:49 | NUR ---
PATIENT AWAKE ON BED, WITH FAMILY AT THE BEDSIDE. NO DISTRESS NOTED. NO C/O CHEST PAIN , NO SOB. USING O2 @ 2LPM VIA NC . SR WITH BBB ON THE MONITOR .
[2018-06-03] MEDS: DOCUSATE SODIUM 100 MG CAPSULE PO SCH (20:31)
--- NOTE | 2018-06-03 21:55 | NUR ---
PATIENT WAS ASSISTED TO THE REST ROOM PER REQUEST. SHE C/O NAUSEA AND FEELING DIZZY . CALLED FOR HELP . SHE PASSED OUT AND WAS BROUGHT BACK TO BED WITH TWO PERSON ASSIST. GUNJAN HAIDER WAS CALLED SHE WAS NON RESPONSIVE. SHE BECAME RESPONSIVE RIGHT AFTER , BLOOD PRESSURE CHECK DONE WITH RESULT OF 107/64 P 78 O2 SAT 95% WITH 2 LPM VIA NC. . SHE STATED SHE IS FEELING FINE.FAMILY AT THE BED SIDE. GUNJAN HAIDER CANCELLED . EKG DONE WITH RESULT SR WITH LEFT BBB. NOTIFIED WITH LABS FOR AM . MD AWARE OF THE RESULT OF THE 2D ECHO . SILL CONTINUE UNDER CLOSE MONITORING
[2018-06-04] VITALS: BP 99/47
--- NOTE | 2018-06-04 04:25 | NUR ---
PATIENT C/O CHEST PRESSURE . B/P CHECK DONE WITH THE RESULT 121/63 P-67. MORPHINE ADMINISTERED PER ORDER. STAT EKG DONE . WILL CONTINUE TO MONITOR .
[2018-06-04] MEDS: MORPHINE SULFATE 4 MG/1 ML DISP.SYRIN IV PRN (04:31)
[2018-06-04 04:35] VITALS: BP 121/63
[2018-06-04 04:56] LABS: BASOPHILS # (AUTO) 0.1 K/uL (0.0-8.0); BASOPHILS % (AUTO) 1.1 % (0.0-2.0); EOSINOPHILS # (AUTO) 0.1 K/uL (0.0-0.7); EOSINOPHILS % (AUTO) 2.1 % (0.0-7.0); HEMATOCRIT 35.6 % (31.2-41.9); HEMOGLOBIN 12.3 g/dL (10.9-14.3); LYMPHOCYTES # (AUTO) 1.9 K/uL (20.0-40.0); LYMPHOCYTES % (AUTO) 33.3 % (20.5-51.5); MEAN CORPUSCULAR HEMOGLOBIN 32.5 uug (24.7-32.8); MEAN CORPUSCULAR HGB CONC 35 g/dL (32.3-35.6); MEAN CORPUSCULAR VOLUME 93.7 fL (75.5-95.3); MONOCYTES # (AUTO) 0.4 K/uL (2.0-10.0); MONOCYTES % (AUTO) 7.6 % (0.0-11.0); NEUTROPHILS # (AUTO) 3.2 K/uL (1.8-8.9); NEUTROPHILS % (AUTO) 55.9 % (38.5-71.5); PLATELET COUNT (AUTO) 128 K/uL (179-408); WHITE BLOOD COUNT (AUTO) 5.7 K/uL (3.8-11.8)
--- NOTE | 2018-06-04 04:57 | NUR ---
NO C/O CHEST DISCOMFORT. PATIENT SLEEPING INTERMITTENTLY. DAUGHTER AT THE BED SIDE.
[2018-06-04 05:08] LABS: ALANINE AMINOTRANSFERASE 15 U/L (14-59); ALKALINE PHOSPHATASE 58 U/L (50-136); ASPARTATE AMINOTRANSFERASE 18 U/L (15-37); BILIRUBIN,TOTAL 1.1 mg/dL (0.2-1.0); CARBON DIOXIDE 28 mmol/L (21-32); CHLORIDE 106 mmol/L (98-107); CREATININE 1.5 mg/dL (0.6-1.3); GLUCOSE 98 mg/dL (74-106); MAGNESIUM 2.1 mg/dL (1.8-2.4); PHOSPHOROUS 4.7 mg/dL (2.5-4.9); POTASSIUM 4.3 mmol/L (3.5-5.1); TOTAL PROTEIN, SERUM 6.1 g/dL (6.4-8.2); UREA NITROGEN, BLOOD 27 mg/dL (7-18)
--- NOTE | 2018-06-04 05:30 | NUR ---
TROPONIN LEVEL 0.150 WHICH IS ELEVATED THAN THE LAST TIME WHICH WAS 0.128. SPOKE WITH SUDEEP, THE PHYSICAL THERAPY TECHNICIAN , INFORMED OF THE RESULT OF ECHO, EKG AND THE TROPONIN LEVEL WITH NO NEW ORDERS. HE STATED TO CONTINUE MONITORING AND WILL SEE THE PATIENT IN AM .
[2018-06-04] MEDS: PANTOPRAZOLE SODIUM 40 MG TABLET.DR PO SCH (06:19)
--- NOTE | 2018-06-04 06:34 | NUR ---
PATIENT ALERT AND AWAKE ON BED. NO C/O CHEST PAIN OR ANY DISCOMFORT. DAUGHTER AT THE BED SIDE .SINUS RHYTHM WITH BBB ON THE MONITOR. CONTINUING UNDER CLOSE MONITORING
[2018-06-04] MEDS: ASPIRIN EC 81 MG TABLET.DR PO SCH (09:06)
--- NOTE | 2018-06-04 09:41 | NUR ---
DR JACK HERE TO SEE PATIENT SPOKE WITH THE PATIENTS DAUGHTER AT THE BEDSIDE WITH NO NEW ORDERS AT THIS TIME.
[2018-06-04 12:13] VITALS: BP 95/49
--- NOTE | 2018-06-04 14:00 | NUR ---
PHYSICAL THERAPY HERE SEEN PATIENT WITH FAIR ENDURANCE PATIENT HAD A EPISODE OF FEELING DIZZY DURING THE THERAPY SESSION
[2018-06-04 16:12] VITALS: BP 133/63
--- NOTE | 2018-06-04 18:00 | NUR ---
RESTING IN BED WITH FAMILY AT THE BEDSIDE WAS ASSISTED TO THE BATHROOM PER HER REQUEST AMBULATED AND TOLERATED WELL WILL CONTINUE TO OBSERVE.
--- NOTE | 2018-06-04 19:30 | NUR ---
RECEIVED IN BED RESTING, IN NO ACUTE SIGNS OF DISTRESS. NO C/O PAIN AT THIS TIME. FAMILY AT BEDSIDE. SINUS RHYTHM ON TELE 60S. SAFETY MEASURES OBSERVED.
[2018-06-04 19:35] VITALS: BP 115/62
[2018-06-04] MEDS: DOCUSATE SODIUM 100 MG CAPSULE PO SCH (21:30)
[2018-06-04 23:41] VITALS: BP 106/54
[2018-06-05 03:47] VITALS: BP 105/39
[2018-06-05] MEDS: PANTOPRAZOLE SODIUM 40 MG TABLET.DR PO SCH (06:08)
--- NOTE | 2018-06-05 06:47 | NUR ---
PT IN BED, SR ON TELE. IN NO ACUTE SIGNS OF DISTRESS. NO C/O PAIN DURING SHIFT. NO C/O DIZZINESS. DTR AT BEDSIDE.
[2018-06-05 06:57] LABS: BASOPHILS % (AUTO) 0.7 % (0.0-2.0); EOSINOPHILS # (AUTO) 0.3 K/uL (0.0-0.7); HEMATOCRIT 34.3 % (31.2-41.9); HEMOGLOBIN 11.9 g/dL (10.9-14.3); LYMPHOCYTES # (AUTO) 1.1 K/uL (20.0-40.0); LYMPHOCYTES % (AUTO) 22.4 % (20.5-51.5); MEAN CORPUSCULAR HEMOGLOBIN 32.5 uug (24.7-32.8); MEAN CORPUSCULAR HGB CONC 35 g/dL (32.3-35.6); MEAN CORPUSCULAR VOLUME 93.4 fL (75.5-95.3); MONOCYTES # (AUTO) 0.4 K/uL (2.0-10.0); MONOCYTES % (AUTO) 8.5 % (0.0-11.0); NEUTROPHILS % (AUTO) 61.4 % (38.5-71.5); PLATELET COUNT (AUTO) 119 K/uL (179-408); RED BLOOD CELL COUNT(AUTO) 3.67 MIL/uL (3.63-4.92); WHITE BLOOD COUNT (AUTO) 4.8 K/uL (3.8-11.8)
[2018-06-05 07:03] LABS: CARBON DIOXIDE 29 mmol/L (21-32); CHLORIDE 107 mmol/L (98-107); CREATININE 1.1 mg/dL (0.6-1.3); GLUCOSE 95 mg/dL (74-106); MAGNESIUM 2.1 mg/dL (1.8-2.4); PHOSPHOROUS 3.4 mg/dL (2.5-4.9); POTASSIUM 4.1 mmol/L (3.5-5.1); UREA NITROGEN, BLOOD 25 mg/dL (7-18)
--- NOTE | 2018-06-05 07:25 | NUR ---
SLEEPING IN BED AROUSES EASILY DENIES PAIN OR DISCOMFORTS AT THIS TIME.REMAIN ON TELEMETRY MONITORING WITH NO CHEST PAIN AT THIS TIME MADE COMFORTABLE AND WILL CONTINUE TO OBSERVE PATIENT.DAUGHTER HERE AT THE BEDSIDE.
[2018-06-05] MEDS: ASPIRIN EC 81 MG TABLET.DR PO SCH (08:23)
[2018-06-05] MEDS: MULTIVITAMINS,THERAPEUTIC TABLET PO SCH (08:23)
--- NOTE | 2018-06-05 09:36 | NUR ---
APPETITE IS POOR BUT TOLERATED ENSURE FOR BREAKFAST THIS AM
[2018-06-05 12:09] VITALS: BP 107/59
--- NOTE | 2018-06-05 12:30 | NUR ---
DR SHEETS RISK DEVELOPER HERE TO SEE PATIENT SPOKE WITH PATIENTS DAUGHTER AT LENGTH WITH NEW ORDERS AND NOTED.
--- NOTE | 2018-06-05 14:00 | NUR ---
DR JACK HERE AND SEEN PATIENT WITH NO NEW ORDERS AT THIS TIME.
[2018-06-05 16:10] VITALS: BP 118/65
--- NOTE | 2018-06-05 18:03 | NUR ---
FAMILY AT THE BEDSIDE DENIES PAIN OR DISCOMFORTS AT THIS TIME WILL CONTINUE TO OBSERVE.
--- NOTE | 2018-06-05 19:20 | NUR ---
Received patient sitting in the chair. AAOX3, mainly Kazakh speaking. Several family member at bedside. In no acute distress. Denies any pain or SOB. VS WNL. SR on tele with BBB at 79/min and pacing. IV site on left AC and right hand intact and patent. Safety measure initiated and call kirill ramos.
[2018-06-05 20:07] VITALS: BP 126/63
[2018-06-05] MEDS: DOCUSATE SODIUM 100 MG CAPSULE PO SCH (20:49)
[2018-06-05] MEDS: METOPROLOL TARTRATE 25 MG TABLET PO SCH (20:50)
[2018-06-06 00:15] VITALS: BP 91/45
[2018-06-06 04:00] VITALS: BP 104/56
[2018-06-06] MEDS: PANTOPRAZOLE SODIUM 40 MG TABLET.DR PO SCH (06:08)
--- NOTE | 2018-06-06 06:42 | NUR ---
Alert and oriented X 3, Belarusian speaking. Daughter at bedside. No acute distress or SOB on this shift. Denies pain at this time. VS WNL. SR on tele with bundle branch block at 60 bpm and pacing. IV site on left AC and right hand intact and patent. Safety measures and call roy within reach. Will endorse to oncoming shift accordingly.
--- NOTE | 2018-06-06 07:26 | NUR ---
RESTING IN BED WITH EYES CLOSED EASILY AROUSABLE ON ROUNDS WITH HER DAUGHTER AT THE BEDSIDE NO S/S OF PAIN OR DISCOMFORTS AT THIS TIME REMAIN ON TELE MONITORING WITH PACEMAKER NOT IN DISTRESS AT THIS TIME.
[2018-06-06] MEDS: ASPIRIN EC 81 MG TABLET.DR PO SCH (08:53)
[2018-06-06] MEDS: MULTIVITAMINS,THERAPEUTIC TABLET PO SCH (08:53)
[2018-06-06] MEDS: METOPROLOL TARTRATE 25 MG TABLET PO SCH (08:54)
--- NOTE | 2018-06-06 09:07 | NUR ---
OUT OF BED AMBULATING WITH THE PHYSICAL THERAPY WITH THE FRONT WHEEL WALKER AND TOLERATED WELL
--- NOTE | 2018-06-06 09:39 | NUR ---
PATIENTS DAUGHTER ALBERTO AT THE BEDSIDE AND I TOUCHED BASE WITH HER RE DISCHARGE PLANNING AND SHE STATED THAT SHE WILL LIKE HER MOTHER TO GO TO A REHAB PLACE FOR THERAPEUTIC EXERCISES THEN THE PLAN IS TO FIND AN ASSISTED LIVING OR BOARD AND CARE AFTED ACUTE REHSB PHASE ENGINEERING DRAFTER/RIG MANAGER NOTIFIED OF PATIENTS DAUGHTERS INTENTION AND STATED WILL TALK TO HER.
--- NOTE | 2018-06-06 11:00 | NUR ---
PATIENT AMBULATED WITH PHYSICAL THERAPY WITH THE FRONT WHEEL WALKER IN THE HALLWAY WITH GOOD ENDURANCE.FAMILY AT THE BEDSIDE AND ASSISTING NEEDED.
[2018-06-06 11:04] VITALS: BP 114/61
--- NOTE | 2018-06-06 14:00 | NUR ---
PATIENT SEEN BY DR NGUYEN UNIVERSAL WORKER ASSISTED LIVING WITH NEW ORDERS AND NOTED.
[2018-06-06 15:07] VITALS: BP 104/58
[2018-06-06] MEDS: ISOSORBIDE MONONITRATE 30 MG TAB.SR.24H PO SCH (16:09)
[2018-06-06] MEDS: METOPROLOL SUCCINATE XL 25 MG TAB.SR.24H PO SCH (16:10)
--- NOTE | 2018-06-06 17:39 | NUR ---
RESTING IN BED FAMILY REMAINS AT BEDSIDE DISCHARGE PLANNING FOR TOMORROW WEDDING DECORATOR AWARE.
--- NOTE | 2018-06-06 19:50 | NUR ---
Received pt sitting up in bed with daughter at bedside. Alert and oriented x3, Pashto speaking. Discussed and reviewed plan of care with pt, pt cooperative with care. Daughter used for translation. Pt denies pain, SOB or dizziness. No acute distress noted. Safety precautions in place, call light within reach. Will continue to monitor and carry out all orders.
[2018-06-06 20:04] VITALS: BP 94/47
[2018-06-06] MEDS: ATORVASTATIN 20 MG TABLET PO SCH (20:21)
[2018-06-06] MEDS: DOCUSATE SODIUM 100 MG CAPSULE PO SCH (20:21)
[2018-06-07] MEDS: PANTOPRAZOLE SODIUM 40 MG TABLET.DR PO SCH (06:14)
--- NOTE | 2018-06-07 06:36 | NUR ---
Pt slept intermittently t/o the night. Daughter at bedside, Czech speaking. Safety precautions and comfort measures maintained at all times. IV intact and patent with no s/s of swelling or redness. Pt denies severe pain, SOB or chills. Comfort measures in place, call light within reach. Will endorse accordingly.
[2018-06-07 06:37] VITALS: BP 103/50
[2018-06-07 07:26] LABS: BASOPHILS % (AUTO) 0.8 % (0.0-2.0); EOSINOPHILS # (AUTO) 0.3 K/uL (0.0-0.7); EOSINOPHILS % (AUTO) 6.6 % (0.0-7.0); HEMATOCRIT 32.3 % (31.2-41.9); HEMOGLOBIN 11.2 g/dL (10.9-14.3); LYMPHOCYTES # (AUTO) 1.3 K/uL (20.0-40.0); LYMPHOCYTES % (AUTO) 28.4 % (20.5-51.5); MEAN CORPUSCULAR HGB CONC 35 g/dL (32.3-35.6); MEAN CORPUSCULAR VOLUME 94.7 fL (75.5-95.3); MONOCYTES # (AUTO) 0.4 K/uL (2.0-10.0); MONOCYTES % (AUTO) 9.2 % (0.0-11.0); NEUTROPHILS # (AUTO) 2.6 K/uL (1.8-8.9); PLATELET COUNT (AUTO) 121 K/uL (179-408); RED BLOOD CELL COUNT(AUTO) 3.41 MIL/uL (3.63-4.92); WHITE BLOOD COUNT (AUTO) 4.7 K/uL (3.8-11.8)
[2018-06-07 07:38] LABS: CARBON DIOXIDE 31 mmol/L (21-32); CHLORIDE 105 mmol/L (98-107); GLUCOSE 88 mg/dL (74-106); MAGNESIUM 2.1 mg/dL (1.8-2.4); PHOSPHOROUS 3.1 mg/dL (2.5-4.9); UREA NITROGEN, BLOOD 26 mg/dL (7-18)
--- NOTE | 2018-06-07 08:00 | NUR ---
SITTING UP ON HER BED WITH HER DAUGHTER AT THE BEDSIDE ENCOURAGING HER TO EAT HER BREAKFAST WITH FAIR APPETITE NO S/S OF SHORTNESS OF BREATH AT THIS TIME MADE COMFORTABLE WILL CONTINUE TO OBSERVE AND PROVIDE SAFE AND THERAPEUTIC ENVIRONMENT AT ALL TIMES.
[2018-06-07] MEDS: ASPIRIN EC 81 MG TABLET.DR PO SCH (08:58)
[2018-06-07] MEDS: MULTIVITAMINS,THERAPEUTIC TABLET PO SCH (08:58)
[2018-06-07] MEDS: METOPROLOL SUCCINATE XL 25 MG TAB.SR.24H PO SCH (08:59)
[2018-06-07] MEDS: ISOSORBIDE MONONITRATE 30 MG TAB.SR.24H PO SCH (08:59)
--- NOTE | 2018-06-07 09:00 | NUR ---
PATIENT SEEN AND EXAMINED BY DR GRAYSON WITH NO NEW ORDERS AT THIS TIME.
[2018-06-07 12:00] VITALS: BP 134/78
[2018-06-07] MEDS ORDERED: Isosorbide Mononitrate PO (14:25)
[2018-06-07] MEDS ORDERED: METO-356 PO (14:25)
[2018-06-07] MEDS ORDERED: DOCU100C36 PO (14:25)
[2018-06-07] MEDS ORDERED: ASPI-618 PO (14:25)
[2018-06-07] MEDS ORDERED: ATOR20TA PO (14:25)
[2018-06-07 16:05] VITALS: BP 114/59
--- NOTE | 2018-06-07 16:25 | NUR ---
RESTING AT THIS TIME WITH NO CLEAR PATH OR FINAL DESTINATION AT THIS TIME THE CASE SREEKANTH HAS BEEN IN CONTACT WITH THE PATIENTS FAMILY.DENIES CHEST PAIN AT HIS TIME.
--- NOTE | 2018-06-07 18:48 | NUR ---
PATIENT HAS A DISCHARGE ORDER BUT UNKNOWN OF HER DESTINATION FAMILY AT THE BEDSIDE AWAITING FOR THE RETAIL FINANCIAL ANALYST TO FINISH THE ARRANGEMENTS TO WHERE TO DISCHARGE THE PATIENT.
--- NOTE | 2018-06-07 18:58 | NUR ---
PER THE RADIO CONTROL CRANE OPERATOR UNABLE TO FIND PLACEMENT FOR THE PATIENT AT THIS TIME PALAK TYLER STATED TO CANCEL THE DISCHARGE ORDER NAD IF BY TOMORROW MORNING TH EPLACEMENT IS NOT CONFIRMED THEN PATIENT WILL BE DISCHARGED HOME FAMILY AWARE.
[2018-06-07 19:36] VITALS: BP 111/67
--- NOTE | 2018-06-07 19:55 | NUR ---
Received pt sitting up in chair, English speaking, AxO x3. Family members at bedside. Discussed and reviewed plan of care, pt cooperative with care. Pt denies pain or SOB at this time. No acute distress noted. Safety environment implemented, call light within reach. Will continue to monitor.
[2018-06-07] MEDS: DOCUSATE SODIUM 100 MG CAPSULE PO SCH (20:42)
[2018-06-07] MEDS: ATORVASTATIN 20 MG TABLET PO SCH (20:42)
[2018-06-08 03:41] VITALS: BP 109/55
[2018-06-08] MEDS: PANTOPRAZOLE SODIUM 40 MG TABLET.DR PO SCH (06:15)
--- NOTE | 2018-06-08 06:50 | NUR ---
Pt rested well in between care. Daughter at bedside. Carried out all orders. Pt denies pain or SOB. Pt shows no s/s of acute distress. Call light within reach. Will continue to monitor.
[2018-06-08 08:00] VITALS: BP 94/48
[2018-06-08] MEDS: MULTIVITAMINS,THERAPEUTIC TABLET PO SCH (08:48)
[2018-06-08] MEDS: ASPIRIN EC 81 MG TABLET.DR PO SCH (08:48)
[2018-06-08] MEDS: METOPROLOL SUCCINATE XL 25 MG TAB.SR.24H PO SCH (09:00)
[2018-06-08] MEDS: ISOSORBIDE MONONITRATE 30 MG TAB.SR.24H PO SCH (09:52)
[2018-06-08 10:15] VITALS: BP 113/63
[2018-06-08 16:00] VITALS: BP 109/57
--- NOTE | 2018-06-08 18:45 | NUR ---
Patient discharged to [facility] Family at bedside. Discharge instructions provided to family mt daughter with verbalized understanding. Discharge papers signed by daughter. Patient remains alert, not in any form of acute distress. She denies any pain or discomfort at this time. Report given to nurse Julian from [facility]. All belongings well accounted for.
== END 2018-06-08 18:30 | DRG 280 ==
LOC: ER 15:35 → TELE 18:26 → MED 06-06 19:29
PROVIDERS: ADMIT Internal Medicine; ATTEND Internal Medicine
DX: I11.0 Hypertensive heart disease with heart failure (principal); N17.0 Acute kidney failure with tubular necrosis; I21.A1 Myocardial infarction type 2; I25.3 Aneurysm of heart; D68.59 Other primary thrombophilia; E44.1 Mild protein-calorie malnutrition; I50.43 Acute on chronic combined systolic (congestive) and diastolic (congestive) heart failure; G31.84 Mild cognitive impairment of uncertain or unknown etiology; I25.118 Atherosclerotic heart disease of native coronary artery with other forms of angina pectoris; I25.2 Old myocardial infarction; M17.0 Bilateral primary osteoarthritis of knee; I49.5 Sick sinus syndrome; Z95.0 Presence of cardiac pacemaker; E86.0 Dehydration; Z90.49 Acquired absence of other specified parts of digestive tract; Z86.73 Personal history of transient ischemic attack (TIA), and cerebral infarction without residual deficits; Z68.21 Body mass index [BMI] 21.0-21.9, adult; I27.20 Pulmonary hypertension, unspecified; N28.89 Other specified disorders of kidney and ureter; Z79.82 Long term (current) use of aspirin; I70.0 Atherosclerosis of aorta; G89.29 Other chronic pain
CPT/HCPCS: 36415; 70030-TC; 71045; 71275; 76770; 83735; 84100; 84443; 85025; 85730; 93005; 93307; 97110; 97116; 97530; A4663; G0378; J1644; J2270; J2405; J7030; J7050; Q9967

== ENCOUNTER 2018-06-27 13:15 | Inpatient (IN) | payer MEDICARE, MEDICAID ==
[~2018-06-27] VITALS: Ht 157.5 cm; Wt 50.3 kg
[~2018-06-27 13:15] MED LIST changes: +ATOR20TA PO; -Benazepril Hcl PO; +DOCU100C36 PO; +Isosorbide Mononitrate PO; +METO-356 PO
--- NOTE | 2018-06-27 13:25 | NUR ---
PT BIB [id number] FROM [facility] C/O DIZZINESS CONSUMER INSIGHT ANALYST. PT A/OX4, DENIES DIZZINESS AT THIS TIME. VSS. PT PRESENTS W/ A SQ PACEMAKER ON LACW. PT DENIES PAIN, C/P, SOB, N/V/D, HEADACHE.
--- NOTE | 2018-06-27 13:30 | NUR ---
JOHANN NEVILLE AT BEDSIDE FOR MSE.
--- NOTE | 2018-06-27 14:00 | NUR ---
PT TAKEN TO RADIOLOGY FOR CT SCAN.
--- NOTE | 2018-06-27 14:08 | NUR ---
PT BACK IN ER BECAUSE PT "NEEDED TO USE THE RESTROOM".
[2018-06-27 14:16] LABS: BASOPHILS # (AUTO) 0.1 K/uL (0.0-8.0); BASOPHILS % (AUTO) 1.2 % (0.0-2.0); EOSINOPHILS # (AUTO) 0.2 K/uL (0.0-0.7); EOSINOPHILS % (AUTO) 3.5 % (0.0-7.0); HEMOGLOBIN 13.3 g/dL (10.9-14.3); LYMPHOCYTES # (AUTO) 1.6 K/uL (20.0-40.0); LYMPHOCYTES % (AUTO) 23.7 % (20.5-51.5); MEAN CORPUSCULAR HEMOGLOBIN 31.4 uug (24.7-32.8); MEAN CORPUSCULAR HGB CONC 33 g/dL (32.3-35.6); MEAN CORPUSCULAR VOLUME 94.5 fL (75.5-95.3); MONOCYTES # (AUTO) 0.5 K/uL (2.0-10.0); MONOCYTES % (AUTO) 7.1 % (0.0-11.0); NEUTROPHILS # (AUTO) 4.4 K/uL (1.8-8.9); NEUTROPHILS % (AUTO) 64.5 % (38.5-71.5); PLATELET COUNT (AUTO) 141 K/uL (179-408); RED BLOOD CELL COUNT(AUTO) 4.23 MIL/uL (3.63-4.92); WHITE BLOOD COUNT (AUTO) 6.9 K/uL (3.8-11.8)
[2018-06-27 14:19] LABS: CARBON DIOXIDE 28 mmol/L (21-32); CHLORIDE 106 mmol/L (98-107); GLUCOSE 102 mg/dL (74-106); POTASSIUM 4.3 mmol/L (3.5-5.1); UREA NITROGEN, BLOOD 19 mg/dL (7-18)
[2018-06-27 14:26] LABS: *BILIRUBIN,URIN NEGATIVE (NEGATIVE); *BLOOD, URINE NEGATIVE (NEGATIVE); *CLARITY,URINE SLIGHTLY CLOUDY (CLEAR); *COLOR,URINE YELLOW (YELLOW); *KETONES,URINE NEGATIVE (NEGATIVE); *UROBILINOGEN,URINE 0.2 E.U./dl (NORMAL); LEUKOCYTE ESTERASE ,URINE 1+ (NEGATIVE); NITRITE, URINE NEGATIVE (NEGATIVE); PH,URINE 7.5 (5.0-8.0); UGLUCOSE NEGATIVE (NEGATIVE)
[2018-06-27 14:26] LABS: ALANINE AMINOTRANSFERASE 18 U/L (14-59); ALKALINE PHOSPHATASE 86 U/L (50-136); ASPARTATE AMINOTRANSFERASE 21 U/L (15-37); BILIRUBIN,DIRECT 0.3 mg/dL (0.0-0.2); BILIRUBIN,TOTAL 1.2 mg/dL (0.2-1.0); TOTAL PROTEIN, SERUM 7.8 g/dL (6.4-8.2)
[2018-06-27 14:32] LABS: BACTERIA,URINE FEW /HPF (NONE SEEN); RBC,URINE 0-3 /HPF (0-3); SQUAMOUS EPITHELIAL CELL,UR FEW /HPF (NONE SEEN)
--- NOTE | 2018-06-27 15:20 | NUR ---
JOHANN NEVILLE AT BEDSIDE FOR PT UPDATE.
--- NOTE | 2018-06-27 15:26 | NUR ---
JOHANN NEVILLE SPEAKING W/ DR. GANT RE PT'S ADMISSION.
--- NOTE | 2018-06-27 16:18 | NUR ---
ADMITTING REPORT GIVEN TO IDA BILL.
--- NOTE | 2018-06-27 16:18 | NUR ---
Pt. admitted to TELE, under care of Dr. GANT. Belongs List completed.
--- NOTE | 2018-06-27 16:45 | NUR ---
RECEIVED PATIENT FROM ER , 88 Y/O , WITH CHIEF COMPLIANT OF DIZZINESS AND DX OF NONSTEMI. TRANSFERED TO BED COMFORTABLY , ROUTINE CARE RENDERED , PATIENT WITH VITAL SIGNS OF BP: 137/72 HR: 60 RR: 18 ,O2 SATURATION IN ROOM AT 97% TEMP : 98 , PATIENT AFEBRILE. PLACE ON TELE NORMAL SINUS, PATIENT ALERT AND ORIENTED SAMI SPEAKING AND UNDERSTANDS SIMPLE [place]. ABLE TO MOVE ALL EXTREMITIES, AMBULATORY WITH ASSIST. PATIENT IS INCONTINENT, BUT ABLE TO GO TO THE BATHROOM. IV ON THE LEFT ANTECUBITAL WITH [address] GANT AWARE OF ADMISSION AND GAVE ORDERS.
[2018-06-27] MEDS ORDERED: IV NS 1000 ML 1,000 ML IV PRN (17:04)
[2018-06-27] MEDS ORDERED: ONDANSETRON 4 MG/2 ML VIAL IV PRN (17:15)
[2018-06-27] MEDS ORDERED: HYDROCODONE/APAP 5-325MG TABLET PO PRN (17:15)
[2018-06-27] MEDS ORDERED: ACETAMINOPHEN 325 MG TABLET PO PRN (17:15)
[2018-06-27] MEDS ORDERED: MAGNESIUM HYDROXIDE 30 ML LIQUID UDC PO PRN (17:15)
[2018-06-27] MEDS ORDERED: Z GUARD REMEDY PASTE 57 GM TUBE TOP PRN (17:15)
--- NOTE | 2018-06-27 18:57 | NUR ---
PATIENT IN BED LAYING COMFORTABLY, NO SOB NOTED, NO PAIN NOTED AT THIS TIME. BED IN LOW POSITION AND BED ALARM ON, SIDE RAIL UP X2. SALINE LOCK INFILTRATED, AND REMOVED , IV INFUSION WILL START ONCE SALINE LOCK RESTARTED, ENDORSE FOR FARTHER CARE.
--- NOTE | 2018-06-27 19:20 | NUR ---
RECEIVED PATIENT LYING IN BED. FAMILY MEMBER AT BEDSIDE. PATIENT AAOX4, MAINLY KOREAN SPEAKING. DAUGHTER TRANSLATED FOR THIS NURSE. IN NO ACUTE DISTRESS. STARTED IV LINE ON RIGHT HAND #22 GAUGE. DENIES ANY SOB. SOME NECK PAIN COMPLAINED. WILL PROVIDE PAIN MEDICATION PER ORDER. A AND AV PACING ON TELE AT 60/MIN. SAFETY MEASURE INITIATED AND CALL WILCOX WITHIN REACH.
[2018-06-27 20:00] VITALS: BP 140/63
[2018-06-27] MEDS ORDERED: MORPHINE SULFATE 2 MG/1 ML DISP.SYRIN IV ONE (20:00)
[2018-06-27] MEDS: DOCUSATE SODIUM 100 MG CAPSULE PO SCH (20:40)
[2018-06-27] MEDS: ATORVASTATIN 20 MG TABLET PO SCH (20:41)
[2018-06-27] MEDS ORDERED: MORPHINE SULFATE 4 MG/1 ML DISP.SYRIN IV ONE (20:45)
--- NOTE | 2018-06-27 23:45 | NUR ---
INFORMED DR MELENDEZ LATEST TROPONIN LEVEL OF 0.113 WITH NO NEW ORDER GIVEN.
[2018-06-28] VITALS: BP 128/67
[2018-06-28 04:00] VITALS: BP 127/67
--- NOTE | 2018-06-28 06:14 | NUR ---
PATIENT AAOX4. DAUGHTER AT BEDSIDE. IN NO ACUTE DISTRESS. IV SITE ON RIGHT HAND INTACT AND PATENT. DENIES ANY FURTHER PAIN. NO SOB. A AND AV PACING ON TELE AT 60/MIN. SAFETY MEASURE MAINTAINED AND CALL WILCOX WITHIN REACH.
[2018-06-28 06:34] LABS: BASOPHILS # (AUTO) 0.1 K/uL (0.0-8.0); BASOPHILS % (AUTO) 1.1 % (0.0-2.0); EOSINOPHILS # (AUTO) 0.4 K/uL (0.0-0.7); EOSINOPHILS % (AUTO) 7.7 % (0.0-7.0); HEMOGLOBIN 11.8 g/dL (10.9-14.3); LYMPHOCYTES # (AUTO) 1.7 K/uL (20.0-40.0); LYMPHOCYTES % (AUTO) 32.5 % (20.5-51.5); MEAN CORPUSCULAR HEMOGLOBIN 31.5 uug (24.7-32.8); MEAN CORPUSCULAR HGB CONC 34 g/dL (32.3-35.6); MEAN CORPUSCULAR VOLUME 93.5 fL (75.5-95.3); MONOCYTES # (AUTO) 0.5 K/uL (2.0-10.0); MONOCYTES % (AUTO) 9.4 % (0.0-11.0); NEUTROPHILS # (AUTO) 2.6 K/uL (1.8-8.9); NEUTROPHILS % (AUTO) 49.3 % (38.5-71.5); PLATELET COUNT (AUTO) 120 K/uL (179-408); RED BLOOD CELL COUNT(AUTO) 3.74 MIL/uL (3.63-4.92); WHITE BLOOD COUNT (AUTO) 5.3 K/uL (3.8-11.8)
[2018-06-28 06:51] LABS: ALANINE AMINOTRANSFERASE 10 U/L (14-59); ALKALINE PHOSPHATASE 65 U/L (50-136); ASPARTATE AMINOTRANSFERASE 18 U/L (15-37); BILIRUBIN,TOTAL 1.1 mg/dL (0.2-1.0); CARBON DIOXIDE 27 mmol/L (21-32); CHLORIDE 107 mmol/L (98-107); CHOLESTEROL 122 mg/dL (<200); CREATININE 0.9 mg/dL (0.6-1.3); GLUCOSE 84 mg/dL (74-106); HDL CHOLESTEROL 70 mg/dL (40-60); MAGNESIUM 1.9 mg/dL (1.8-2.4); PHOSPHOROUS 3.4 mg/dL (2.5-4.9); POTASSIUM 3.8 mmol/L (3.5-5.1); TOTAL PROTEIN, SERUM 6.4 g/dL (6.4-8.2); TRIGLYCERIDES 65 MG/DL (30-150); UREA NITROGEN, BLOOD 15 mg/dL (7-18)
--- NOTE | 2018-06-28 07:40 | NUR ---
RECEIVED PATIENT IN BED WITH EYES CLOSED BUT EASILY AROUSABLE ON ROUNDS BUT FALLS ASLEEP PROMPTLY WITH NO S/S OF PAIN OR DISCOMFORTS AT THIS TIME.PATIENTS DAUGHTER IS AT THE BEDSIDE CALL LIGHTS AND PERSONAL BELONGINGS ARE WITHIN EASY REACH MADE COMFORTABLE WITH NO DISTRESS NOTED AT THIS TIME.
[2018-06-28] MEDS: ASPIRIN EC 81 MG TABLET.DR PO SCH (08:31)
[2018-06-28] MEDS: METOPROLOL SUCCINATE XL 25 MG TAB.SR.24H PO SCH (08:33)
[2018-06-28] MEDS ORDERED: ISOSORBIDE MONONITRATE 30 MG TAB.SR.24H PO SCH (09:00)
[2018-06-28] MEDS ORDERED: ISOSORBIDE MONONITRATE 30 MG PO SCH (09:00)
[2018-06-28 11:43] VITALS: BP 108/56
--- NOTE | 2018-06-28 14:00 | NUR ---
PATIENT IS RESTING DENIES CHEST PAIN AT THIS TIME MADE COMFORTABLE WILL CONTINUE TO OBSERVE.
[2018-06-28] MEDS ORDERED: ISOSORBIDE MONONITRATE 30 MG TAB.SR.24H PO ONE (15:15)
[2018-06-28 15:32] VITALS: BP 100/56
--- NOTE | 2018-06-28 16:00 | NUR ---
PER DR PATRICK PARKS FOR PATIENT TO HAVE HER BLOOD PRESSURE MEDICATIONS WITH SYSTOLIC AT 100 OR ABOVE AND NOTED
--- NOTE | 2018-06-28 18:00 | NUR ---
THE PLAN IS THAT PATIENT WILL BE TRANSPORTED TO [facility] FOR A [facility]A [facility] PICKER BY [id number] AND SCHEDULED TIME IS 1000. PATIENT AND FAMILY AWARE.TRANSPORTATION ARRANGEMENTS HAS BEEN COMPLETED BY THE [employer].
--- NOTE | 2018-06-28 19:20 | NUR ---
RECEIVED PATIENT LYING IN BED. FAMILY MEMBERS AT BEDSIDE. PATIENT AAOX4. IN NO ACUTE DISTRESS. DENIES ANY PAIN OR SOB. IV LINE ON RIGHT HAND INTACT AND PATENT. V PACING ON TELE WITH UNDERLYING SR AT 64/MIN. SAFETY MEASURE INITIATED AND CALL [employer]ILCOX WITHIN REACH.
[2018-06-28 20:00] VITALS: BP 103/55
[2018-06-28] MEDS: ATORVASTATIN 20 MG TABLET PO SCH (20:45)
[2018-06-28] MEDS: DOCUSATE SODIUM 100 MG CAPSULE PO SCH (20:45)
[2018-06-29] VITALS: BP 100/56
[2018-06-29 04:00] VITALS: BP 95/51
--- NOTE | 2018-06-29 06:04 | NUR ---
PATIENT AAOX4. IN NO ACUTE DISTRESS. IV SITE ON RIGHT HAND REMAINS INTACT AND PATENT. DENIES ANY FURTHER PAIN. NO SOB. A AND AV PACING ON TELE AT 64/MIN. SAFETY MEASURE MAINTAINED AND CALL WILCOX WITHIN REACH.
--- NOTE | 2018-06-29 07:20 | NUR ---
patient resting in bed this am falling asleep arousable. patient with daughter at bedside. IV line in place. no distress reported by patient continue to monitor. bed remains in low position, side rails up x2, call light within reach.
[2018-06-29 08:30] VITALS: BP 100/67
--- NOTE | 2018-06-29 08:30 | NUR ---
patient remains alert and oriented this am, patient denies any distress, IV HL line patent on right hand 22g, family at beside. patient remains NPO this am, only [place] was provided at 0113am, nothing else. continue to monitor
[2018-06-29] MEDS ORDERED: ISOSORBIDE MONONITRATE 30 MG TAB.SR.24H PO SCH (09:00)
[2018-06-29] MEDS ORDERED: ISOSORBIDE MONONITRATE 60 MG TAB.SR.24H PO SCH (09:00)
[2018-06-29] MEDS: METOPROLOL SUCCINATE XL 25 MG TAB.SR.24H PO SCH (09:00)
[2018-06-29] MEDS: ASPIRIN EC 81 MG TABLET.DR PO SCH (09:00)
[2018-06-29 09:30] VITALS: BP 114/67
[2018-06-29 10:30] VITALS: BP 144/76
--- NOTE | 2018-06-29 10:35 | NUR ---
patient left unit at this time, no jewelry on patient. no metal, patient with pacemaker. report provided to ALS transport.
[2018-06-29] MEDS: SULFAMETH/TRIMETH 800/160 MG TABLET PO SCH ×2 (11:00→15:22)
--- NOTE | 2018-06-29 13:37 | NUR ---
PATIENT CAME BY AMBULANCE BACK FROM [facility], SBP 120S/DBP 60S, HR 60S, PACED, O2 97%, NEW IV WAS STARTED RAC 20 G PATIENT A/O 2-3, NO SOB OR COMPLAINS AT THE MOMENT.
[2018-06-29 15:32] VITALS: BP 143/74
[2018-06-29] MEDS ORDERED: SULF1TAB3 PO (16:33)
[2018-06-29] MEDS ORDERED: Isosorbide Mononitrate PO (16:33)
--- NOTE | 2018-06-29 18:50 | NUR ---
patient has open case with [facility] in [place] case management will notify, Cammy Garza [facility] case management
--- NOTE | 2018-06-29 18:50 | NUR ---
patient compliant with meds and care, patient medically cleared and cleared by cardiology, patient provided with discharge instructions, daughter and family at bedside, reinforced discharge instructions, patient denies any distress remained stable. patient belongings returned and accounted for. Patient to follow up with PCP in one week, patient to see production sampler in one week, per daughter patient has appointment next week, IV line removed ID band removed, questions and concerns addressed. Tele removed.
[2018-06-29] MEDS ORDERED: MUPIROCIN 2% OINT 22 GM TUBE NS SCH (21:00)
[2018-06-29] MEDS ORDERED: CULTURELLE CAPSULE PO SCH (21:00)
[2018-06-29] MEDS ORDERED: MIRTAZAPINE 15 MG TABLET PO SCH (21:00)
== END 2018-06-29 18:56 | disposition home health service (06) | DRG 281 ==
LOC: ER 13:15 → TELE 16:31
PROVIDERS: ADMIT Internal Medicine; ATTEND Internal Medicine
DX: I25.10 Atherosclerotic heart disease of native coronary artery without angina pectoris (principal); I21.A1 Myocardial infarction type 2; N39.0 Urinary tract infection, site not specified; I25.3 Aneurysm of heart; D68.59 Other primary thrombophilia; I50.42 Chronic combined systolic (congestive) and diastolic (congestive) heart failure; G45.9 Transient cerebral ischemic attack, unspecified; I11.0 Hypertensive heart disease with heart failure; I27.20 Pulmonary hypertension, unspecified; I44.7 Left bundle-branch block, unspecified; I25.5 Ischemic cardiomyopathy; I25.2 Old myocardial infarction; M48.02 Spinal stenosis, cervical region; G89.29 Other chronic pain; F41.9 Anxiety disorder, unspecified; F03.90 Unspecified dementia, unspecified severity, without behavioral disturbance, psychotic disturbance, mood disturbance, and anxiety; Z86.73 Personal history of transient ischemic attack (TIA), and cerebral infarction without residual deficits; R53.1 Weakness; M17.0 Bilateral primary osteoarthritis of knee; B96.1 Klebsiella pneumoniae [K. pneumoniae] as the cause of diseases classified elsewhere; N28.89 Other specified disorders of kidney and ureter; Z95.0 Presence of cardiac pacemaker
CPT/HCPCS: 36415; 70030-TC; 70450; 71045; 72125; 83605; 83735; 84100; 85025; 85730; 87040; 87077; 87086; 93005; A4663; G0378; J2270; J7030

== ENCOUNTER 2019-11-20 21:18 | Inpatient (IN) | payer MEDICARE, MEDICAID ==
[~2019-11-20] VITALS: Ht 157.5 cm; Wt 52.9 kg
[~2019-11-20 21:18] MED LIST changes: +SULF1TAB3 PO
[2019-11-20] MEDS ORDERED: ASPIRIN 81 MG TAB.CHEW PO ONE (21:30)
--- NOTE | 2019-11-20 21:30 | NUR ---
DR. MEDINA AT BEDSIDE FOR MSE.
[2019-11-20] MEDS ORDERED: ASPIRIN 81 MG TAB.CHEW ONE (21:35)
[2019-11-20 21:41] LABS: BASOPHILS # (AUTO) 0.1 K/uL (0.0-8.0); BASOPHILS % (AUTO) 1.3 % (0.0-2.0); EOSINOPHILS # (AUTO) 0.9 K/uL (0.0-0.7); EOSINOPHILS % (AUTO) 15.1 % (0.0-7.0); HEMATOCRIT 30.4 % (31.2-41.9); HEMOGLOBIN 9.8 g/dL (10.9-14.3); LYMPHOCYTES # (AUTO) 1.7 K/uL (20.0-40.0); LYMPHOCYTES % (AUTO) 28.2 % (20.5-51.5); MEAN CORPUSCULAR HGB CONC 32 g/dL (32.3-35.6); MONOCYTES # (AUTO) 0.6 K/uL (2.0-10.0); MONOCYTES % (AUTO) 10.6 % (0.0-11.0); NEUTROPHILS # (AUTO) 2.7 K/uL (1.8-8.9); NEUTROPHILS % (AUTO) 44.8 % (38.5-71.5); PLATELET COUNT (AUTO) 216 K/uL (179-408); RED BLOOD CELL COUNT(AUTO) 3.62 MIL/uL (3.63-4.92)
[2019-11-20 21:47] LABS: CARBON DIOXIDE 28 mmol/L (21-32); CHLORIDE 106 mmol/L (98-107); CREATININE 1.6 mg/dL (0.6-1.3); GLUCOSE 98 mg/dL (74-106); POTASSIUM 4.2 mmol/L (3.5-5.1); UREA NITROGEN, BLOOD 27 mg/dL (7-18)
--- NOTE | 2019-11-20 21:47 | NUR ---
SON TANA ELLIOTT . HOME MEDICATIONS UPDATED BY MELTING OPERATOR.
[2019-11-20] MEDS ORDERED: APIX2.5T PO (21:52)
[2019-11-20] MEDS ORDERED: MEMA10TA PO (21:52)
[2019-11-20] MEDS ORDERED: POTA20TA83 PO (21:52)
[2019-11-20] MEDS ORDERED: FURO-151 PO (21:52)
[2019-11-20] MEDS ORDERED: BENA5TAB5 PO (21:52)
[2019-11-20] MEDS ORDERED: MIRT7.5T10 PO (21:52)
[2019-11-20] MEDS ORDERED: DONE10TA11 PO (21:52)
[2019-11-20 22:00] LABS: ALANINE AMINOTRANSFERASE 13 U/L (14-59); ALKALINE PHOSPHATASE 111 U/L (50-136); ASPARTATE AMINOTRANSFERASE 18 U/L (15-37); BILIRUBIN,DIRECT 0.1 mg/dL (0.0-0.2); BILIRUBIN,TOTAL 0.4 mg/dL (0.2-1.0); TOTAL PROTEIN, SERUM 7.7 g/dL (6.4-8.2)
[2019-11-20 22:43] LABS: *BILIRUBIN,URIN NEGATIVE (NEGATIVE); *BLOOD, URINE 1+ (NEGATIVE); *CLARITY,URINE CLEAR (CLEAR); *COLOR,URINE LIGHT YELLOW (YELLOW); *KETONES,URINE NEGATIVE (NEGATIVE); *UROBILINOGEN,URINE 0.2 E.U./dl (NORMAL); LEUKOCYTE ESTERASE ,URINE 1+ (NEGATIVE); NITRITE, URINE NEGATIVE (NEGATIVE); PH,URINE 7.5 (5.0-8.0); UGLUCOSE NEGATIVE (NEGATIVE)
--- NOTE | 2019-11-20 22:43 | NUR ---
EPIC PAGED, AWAITING CALL BACK.
--- NOTE | 2019-11-20 23:00 | NUR ---
Pt. admitted to TELE , under care of Dr. CEDENO Belongs List completed. VANDANA FAJARDO NOTIFIED.
--- NOTE | 2019-11-20 23:30 | NUR ---
Received patient awake and alert. Patient shows no signs or symptoms of distress at this time. Denies having any chest pain or shortness of breath at this time. Vital signs stable. 20g IV heplock to right AC. Sinus rhythm on V-pacing on tele monitor. Received orders from Dr. Lehman and orders were placed. Dr. Lehman to come to hospital at 0730 to reconcile medication. Vital signs stable. Bed set to lowest position. Call light within reach. Side rails X2 are up. Will continue to monitor patient.
[2019-11-20 23:54] VITALS: BP 139/69
[2019-11-21] MEDS ORDERED: ACETAMINOPHEN 325 MG TABLET PO PRN
[2019-11-21] MEDS ORDERED: ONDANSETRON 4 MG/2 ML VIAL IV PRN
[2019-11-21] MEDS: MIRTAZAPINE 15 MG TABLET PO SCH ×2 (00:24→21:34)
[2019-11-21 04:41] VITALS: BP 94/47
[2019-11-21] MEDS: PANTOPRAZOLE SODIUM 40 MG TABLET.DR PO SCH (06:06)
[2019-11-21 06:45] LABS: ALANINE AMINOTRANSFERASE 10 U/L (14-59); ALKALINE PHOSPHATASE 85 U/L (50-136); ASPARTATE AMINOTRANSFERASE 18 U/L (15-37); BILIRUBIN,TOTAL 0.4 mg/dL (0.2-1.0); CARBON DIOXIDE 30 mmol/L (21-32); CHLORIDE 105 mmol/L (98-107); CHOLESTEROL 177 mg/dL (<200); CREATININE 1.6 mg/dL (0.6-1.3); GLUCOSE 81 mg/dL (74-106); HDL CHOLESTEROL 78 mg/dL (40-60); MAGNESIUM 2.2 mg/dL (1.8-2.4); PHOSPHOROUS 4.1 mg/dL (2.5-4.9); POTASSIUM 3.6 mmol/L (3.5-5.1); TOTAL PROTEIN, SERUM 6.4 g/dL (6.4-8.2); TRIGLYCERIDES 58 MG/DL (30-150); UREA NITROGEN, BLOOD 26 mg/dL (7-18)
[2019-11-21 06:52] LABS: THYROID STIMULATING HORMONE 0.995 mIU/mL (0.358-3.740)
[2019-11-21 06:56] LABS: BASOPHILS # (AUTO) 0.1 K/uL (0.0-8.0); BASOPHILS % (AUTO) 2.6 % (0.0-2.0); EOSINOPHILS % (AUTO) 17.4 % (0.0-7.0); HEMATOCRIT 26.5 % (31.2-41.9); HEMOGLOBIN 8.8 g/dL (10.9-14.3); LYMPHOCYTES # (AUTO) 1.9 K/uL (20.0-40.0); LYMPHOCYTES % (AUTO) 34.5 % (20.5-51.5); MEAN CORPUSCULAR HEMOGLOBIN 27.8 uug (24.7-32.8); MEAN CORPUSCULAR HGB CONC 33 g/dL (32.3-35.6); MONOCYTES # (AUTO) 0.5 K/uL (2.0-10.0); MONOCYTES % (AUTO) 9.4 % (0.0-11.0); NEUTROPHILS % (AUTO) 36.1 % (38.5-71.5); PLATELET COUNT (AUTO) 176 K/uL (179-408); RED BLOOD CELL COUNT(AUTO) 3.16 MIL/uL (3.63-4.92); WHITE BLOOD COUNT (AUTO) 5.6 K/uL (3.8-11.8)
--- NOTE | 2019-11-21 07:45 | NUR ---
Reserved patient awake, alert and oriented times 2. No respiratory distress noted at this time, patient is saturating well on room air. IV on right AC is a hep loc, it is intact and patent. No report of pain at this time. Safety measure in place, bed in lowest position and locked and call light and patient's belongings are within reach. Will continue to observe and monitor.
[2019-11-21] MEDS ORDERED: BENAZEPRIL HCL 5 MG TABLET PO SCH (08:15)
[2019-11-21] MEDS: APIXABAN 5 MG TABLET PO SCH ×2 (08:24→18:06)
[2019-11-21] MEDS ORDERED: MEMANTINE HCL 10 MG TABLET PO SCH (09:00)
[2019-11-21] MEDS ORDERED: FUROSEMIDE 40 MG TABLET PO SCH (09:00)
[2019-11-21] MEDS ORDERED: POTASSIUM CHLORIDE 20 MEQ TAB.PRT.SR PO SCH (09:00)
[2019-11-21] MEDS ORDERED: PANTOPRAZOLE SODIUM 40 MG VIAL IV SCH (09:00)
[2019-11-21] MEDS ORDERED: Medication Not On Formulary EA (Apixaban (Eliquis) 2.5 MG) PO SCH (09:00)
[2019-11-21] MEDS: MEMANTINE HCL 5 MG TABLET PO SCH ×2 (09:45→21:34)
[2019-11-21 11:35] VITALS: BP 94/52
[2019-11-21] MEDS: DONEPEZIL 10 MG TABLET PO SCH (14:13)
[2019-11-21 16:00] VITALS: BP 96/50
--- NOTE | 2019-11-21 19:55 | NUR ---
PATIENT CALM AND COMFORTABLE THROUGH OUT SHIFT WITH NO SIGNS OF DISTRESS; PATIENT WITH STABLE VITAL SIGNS.
[2019-11-21 20:00] VITALS: BP 98/51
--- NOTE | 2019-11-21 20:00 | NUR ---
Received patient resting in bed, easily to arouse. No signs of acute distress noted. A/Ox2, Mozambican speaking, able to make needs known. No complaints of chest pain at this time, no SOB. vitals WNL. Heplock on the right forearm is intact and patent. SR, v-pacing on the monitor. Safety measures initiated. bed is low and locked, call light within reach. Will continue to monitor.
[2019-11-21] MEDS ORDERED: Medication Not On Formulary EA (Mirtazapine 7.5 MG) PO SCH (21:00)
[2019-11-21] MEDS ORDERED: MIRTAZAPINE 15 MG TABLET PO SCH (21:00)
[2019-11-22 00:56] VITALS: BP 98/50
[2019-11-22 04:30] VITALS: BP 105/50
[2019-11-22 06:32] LABS: BASOPHILS # (AUTO) 0.1 K/uL (0.0-8.0); BASOPHILS % (AUTO) 1.2 % (0.0-2.0); EOSINOPHILS # (AUTO) 0.9 K/uL (0.0-0.7); EOSINOPHILS % (AUTO) 18.2 % (0.0-7.0); HEMOGLOBIN 8.7 g/dL (10.9-14.3); LYMPHOCYTES # (AUTO) 1.7 K/uL (20.0-40.0); LYMPHOCYTES % (AUTO) 32.8 % (20.5-51.5); MEAN CORPUSCULAR HEMOGLOBIN 27.2 uug (24.7-32.8); MEAN CORPUSCULAR HGB CONC 32 g/dL (32.3-35.6); MEAN CORPUSCULAR VOLUME 83.9 fL (75.5-95.3); MONOCYTES # (AUTO) 0.4 K/uL (2.0-10.0); MONOCYTES % (AUTO) 7.3 % (0.0-11.0); NEUTROPHILS # (AUTO) 2.1 K/uL (1.8-8.9); NEUTROPHILS % (AUTO) 40.5 % (38.5-71.5); PLATELET COUNT (AUTO) 193 K/uL (179-408); RED BLOOD CELL COUNT(AUTO) 3.22 MIL/uL (3.63-4.92); WHITE BLOOD COUNT (AUTO) 5.2 K/uL (3.8-11.8)
[2019-11-22 06:43] LABS: CARBON DIOXIDE 28 mmol/L (21-32); CHLORIDE 107 mmol/L (98-107); CREATININE 1.6 mg/dL (0.6-1.3); GLUCOSE 86 mg/dL (74-106); POTASSIUM 3.9 mmol/L (3.5-5.1); UREA NITROGEN, BLOOD 27 mg/dL (7-18)
[2019-11-22] MEDS: PANTOPRAZOLE SODIUM 40 MG TABLET.DR PO SCH (06:43)
--- NOTE | 2019-11-22 08:00 | NUR ---
Reserved patient awake, alert and oriented times 2. No respiratory distress noted at this time, patient is saturating well on room air. IV on right AC is intact and patent with no signs of infiltration. No report of pain at this time. Safety measure in place, bed in lowest position and locked and call light and patient's belongings are within reach. Will continue to observe and monitor.
[2019-11-22] MEDS: DONEPEZIL 10 MG TABLET PO SCH (08:11)
[2019-11-22] MEDS: MEMANTINE HCL 5 MG TABLET PO SCH ×2 (08:11→20:39)
[2019-11-22] MEDS: IV NS 1000 ML 1,000 ML IV PRN ×2 (08:13→22:13)
[2019-11-22] MEDS: APIXABAN 5 MG TABLET PO SCH ×2 (08:16→17:38)
[2019-11-22 11:57] VITALS: BP 102/39
[2019-11-22 16:00] VITALS: BP 118/55
--- NOTE | 2019-11-22 18:40 | NUR ---
Patient is resting comfortably in bed. No signs of respiratory distress noted, saturating will on room air. All vital signs are within normal limits. IV patent and intact with fluids running as prescribes. MD wants patient to stay another night to get more fluids to improve kidney function. Chest x-ray showed mild bilateral atelectasis and echo showed an ejection fraction of 50%. All safety precautions in place with bed in the lowest position and locked and the patients call light and belongings are within reach. Will endorse to oncoming nurse.
--- NOTE | 2019-11-22 19:30 | NUR ---
Patient received in bed. Patient has no s/s of acute distress or pain at this time. Patient is saturating well on room air. Patient's vitals are stable. IV on RAC is patent with NS running at 75cc. Safety measures in place. Bed low and locked in position. Call light within reach. Will continue with the plan of care.
[2019-11-22 20:06] VITALS: BP 139/59
[2019-11-22] MEDS: MIRTAZAPINE 15 MG TABLET PO SCH (20:40)
[2019-11-23 04:20] VITALS: BP 106/46
[2019-11-23] MEDS: PANTOPRAZOLE SODIUM 40 MG TABLET.DR PO SCH (06:10)
[2019-11-23 06:40] LABS: BASOPHILS # (AUTO) 0.1 K/uL (0.0-8.0); BASOPHILS % (AUTO) 1.3 % (0.0-2.0); EOSINOPHILS # (AUTO) 0.8 K/uL (0.0-0.7); EOSINOPHILS % (AUTO) 17.3 % (0.0-7.0); HEMATOCRIT 25.8 % (31.2-41.9); HEMOGLOBIN 8.3 g/dL (10.9-14.3); LYMPHOCYTES # (AUTO) 1.4 K/uL (20.0-40.0); LYMPHOCYTES % (AUTO) 28.4 % (20.5-51.5); MEAN CORPUSCULAR HEMOGLOBIN 27.2 uug (24.7-32.8); MEAN CORPUSCULAR HGB CONC 32 g/dL (32.3-35.6); MEAN CORPUSCULAR VOLUME 84.1 fL (75.5-95.3); MONOCYTES # (AUTO) 0.4 K/uL (2.0-10.0); MONOCYTES % (AUTO) 8.6 % (0.0-11.0); NEUTROPHILS # (AUTO) 2.2 K/uL (1.8-8.9); NEUTROPHILS % (AUTO) 44.4 % (38.5-71.5); PLATELET COUNT (AUTO) 174 K/uL (179-408); RED BLOOD CELL COUNT(AUTO) 3.07 MIL/uL (3.63-4.92); WHITE BLOOD COUNT (AUTO) 4.9 K/uL (3.8-11.8)
[2019-11-23 06:49] LABS: CREATININE 1.2 mg/dL (0.6-1.3); POTASSIUM 3.7 mmol/L (3.5-5.1)
--- NOTE | 2019-11-23 06:55 | NUR ---
Patient slept intermittently through the night. Patient is awake and has no s/s of acute distress or pain at this time. Patient is A pacing 60 on tele monitor. Vitals stable. IV is currently running with NS at 75cc. Prescribed medication given, patient tolerated. Comfort care and needs attended. Fall precaution maintained. Safety measures in place. Bed low and locked in position. Call light within reach. Will endorse to the oncoming nurse accordingly.
--- NOTE | 2019-11-23 07:30 | NUR ---
Received patient in bed, awake and responsive. Serbian speaking. No signs of distress noted. No SOB. No complain of Chest pain or any discomfort. kept clean and comfortable. Will continue to monitor.
[2019-11-23] MEDS: MEMANTINE HCL 5 MG TABLET PO SCH (08:19)
[2019-11-23] MEDS: DONEPEZIL 10 MG TABLET PO SCH (08:19)
[2019-11-23] MEDS: APIXABAN 5 MG TABLET PO SCH (08:22)
[2019-11-23 11:28] VITALS: BP 90/48
--- NOTE | 2019-11-23 12:35 | NUR ---
Patient awake, and verbally responsive. Turkish speaking. patient with Order to be discharge today, Called MARIE Vargas and relayed Discharge Order and verbalized understanding. All belongings was sent with Patient. removed IV site and Wrist band. patient was picked up by Son Sam via Private car in stable condition.
== END 2019-11-23 12:20 | disposition home or self-care (01) | DRG 683 ==
LOC: ER 21:34 → TELE3 23:19 → MEDSURG3 11-23 07:46
PROVIDERS: ADMIT Family Medicine; ATTEND Family Medicine
DX: N17.0 Acute kidney failure with tubular necrosis (principal); I42.9 Cardiomyopathy, unspecified; I50.22 Chronic systolic (congestive) heart failure; I13.0 Hypertensive heart and chronic kidney disease with heart failure and stage 1 through stage 4 chronic kidney disease, or unspecified chronic kidney disease; R07.89 Other chest pain; F03.90 Unspecified dementia, unspecified severity, without behavioral disturbance, psychotic disturbance, mood disturbance, and anxiety; E86.0 Dehydration; I25.10 Atherosclerotic heart disease of native coronary artery without angina pectoris; I27.20 Pulmonary hypertension, unspecified; Z79.82 Long term (current) use of aspirin; I11.0 Hypertensive heart disease with heart failure; I44.7 Left bundle-branch block, unspecified; I48.0 Paroxysmal atrial fibrillation; M19.90 Unspecified osteoarthritis, unspecified site; Z79.01 Long term (current) use of anticoagulants; N18.9 Chronic kidney disease, unspecified
CPT/HCPCS: 36415; 70030-TC; 71045; 83735; 84100; 84443; 85025; 85730; 87077; 87086; 93005; 93307; A4663; G0378; J7030

== ENCOUNTER 2019-12-08 15:29 | Inpatient (IN) | payer MEDICARE, MEDICAID ==
[~2019-12-08] VITALS: Ht 157.5 cm; Wt 53.1 kg
[~2019-12-08 15:29] MED LIST changes: +APIX2.5T PO; -ASPI-618 PO; -ATOR20TA PO; +BENA5TAB5 PO; -DOCU100C36 PO; +DONE10TA11 PO; +FURO-151 PO; -Isosorbide Mononitrate PO; +MEMA10TA PO; -METO-356 PO; +MIRT7.5T10 PO; +POTA20TA83 PO; -SULF1TAB3 PO
--- NOTE | 2019-12-08 15:35 | NUR ---
Dr. Bah at bedside for MSE
[2019-12-08 16:38] LABS: BASOPHILS # (AUTO) 0.1 K/uL (0.0-8.0); BASOPHILS % (AUTO) 1.2 % (0.0-2.0); EOSINOPHILS # (AUTO) 0.4 K/uL (0.0-0.7); EOSINOPHILS % (AUTO) 5.1 % (0.0-7.0); HEMATOCRIT 31.1 % (31.2-41.9); LYMPHOCYTES # (AUTO) 1.5 K/uL (20.0-40.0); LYMPHOCYTES % (AUTO) 20.5 % (20.5-51.5); MEAN CORPUSCULAR HEMOGLOBIN 26.9 uug (24.7-32.8); MEAN CORPUSCULAR HGB CONC 32 g/dL (32.3-35.6); MEAN CORPUSCULAR VOLUME 84.1 fL (75.5-95.3); MONOCYTES # (AUTO) 0.5 K/uL (2.0-10.0); MONOCYTES % (AUTO) 6.8 % (0.0-11.0); NEUTROPHILS # (AUTO) 4.9 K/uL (1.8-8.9); NEUTROPHILS % (AUTO) 66.4 % (38.5-71.5); PLATELET COUNT (AUTO) 223 K/uL (179-408); WHITE BLOOD COUNT (AUTO) 7.4 K/uL (3.8-11.8)
[2019-12-08 16:41] LABS: CARBON DIOXIDE 26 mmol/L (21-32); CHLORIDE 102 mmol/L (98-107); CREATININE 1.4 mg/dL (0.6-1.3); GLUCOSE 152 mg/dL (74-106); POTASSIUM 3.5 mmol/L (3.5-5.1); UREA NITROGEN, BLOOD 22 mg/dL (7-18)
[2019-12-08 16:47] LABS: ALANINE AMINOTRANSFERASE 12 U/L (14-59); ALKALINE PHOSPHATASE 108 U/L (50-136); ASPARTATE AMINOTRANSFERASE 19 U/L (15-37); BILIRUBIN,DIRECT 0.1 mg/dL (0.0-0.2); BILIRUBIN,TOTAL 0.5 mg/dL (0.2-1.0); TOTAL PROTEIN, SERUM 7.5 g/dL (6.4-8.2)
[2019-12-08] MEDS ORDERED: CEFTRIAXONE 1 G in IV DEXTROSE 5% 50 ML IV ONE (17:00)
[2019-12-08] MEDS ORDERED: IV NORMAL SALINE 1000 ML BAG IV ONE (17:00)
[2019-12-08] MEDS ORDERED: ASPIRIN 325 MG TABLET PO ONE (17:00)
[2019-12-08 17:01] LABS: CREATINE KINASE, TOTAL 47 U/L (26-192); LIPASE 470 U/L (73-393)
[2019-12-08 17:04] LABS: THYROID STIMULATING HORMONE 0.918 mIU/mL (0.358-3.740)
[2019-12-08] MEDS ORDERED: ASPIRIN 325 MG TABLET ONE (17:12)
[2019-12-08] MEDS ORDERED: CEFTRIAXONE /D5W 50ML IVPB **ER PYXIS IV ONE (17:12)
[2019-12-08 17:13] LABS: *BILIRUBIN,URIN NEGATIVE (NEGATIVE); *BLOOD, URINE NEGATIVE (NEGATIVE); *CLARITY,URINE CLEAR (CLEAR); *COLOR,URINE YELLOW (YELLOW); *KETONES,URINE NEGATIVE (NEGATIVE); *UROBILINOGEN,URINE 0.2 E.U./dl (NORMAL); LEUKOCYTE ESTERASE ,URINE NEGATIVE (NEGATIVE); NITRITE, URINE NEGATIVE (NEGATIVE); PH,URINE 5.5 (5.0-8.0); UGLUCOSE NEGATIVE (NEGATIVE)
--- NOTE | 2019-12-08 17:52 | NUR ---
Called [facility] for panel placement
--- NOTE | 2019-12-08 18:15 | NUR ---
Pt. admitted to Tele , under care of Petey Solomon Belongs List completed
--- NOTE | 2019-12-08 18:24 | NUR ---
Petey Solomon HEAVY EQUIPMENT DIESEL MECHANIC at bedside to evaluate patient
[2019-12-08] MEDS ORDERED: ONDANSETRON 4 MG/2 ML VIAL IV PRN (19:00)
[2019-12-08] MEDS ORDERED: Z GUARD REMEDY PASTE 57 GM TUBE TOP PRN (19:00)
[2019-12-08] MEDS ORDERED: MAGNESIUM HYDROXIDE 30 ML LIQUID UDC PO PRN (19:00)
[2019-12-08] MEDS ORDERED: ACETAMINOPHEN 325 MG TABLET PO PRN (19:00)
--- NOTE | 2019-12-08 19:05 | NUR ---
pt in bed, awake. no s/s of distress respirations even and unlabored family at bedside safety precautions in place. bed locked, lowest position. instructed pt/family to call nurse for assistance. will continue to monitor
--- NOTE | 2019-12-08 20:30 | NUR ---
Pt. admitted to Tele room 312 , under care of JAYSON Solomon Belongs List completed. all belongings with pt no s/s of distress transported via gurney
--- NOTE | 2019-12-08 20:40 | NUR ---
NEW ADMISSION NOTES PATIENT RECEIVED INTO CARE VIA FANGRJEZ FROM ED. PT IS GEORGIAN SPEAKING ONLY SO PMH WAS RECEIVED FROM PREVIOUS VISITS TO THIS FACILITY, RECENTLY NOVEMBER 20, 2019. PATIENT IS A/O 3, WALKS WITH A CANE BUT NOT VERY STEADY. ALL PERTINENT ASSESSMENTS COMPLETED AND INFORMATION RESOURCE CONSULTANT APPLIED. PT HAS LEFT SIDED PACEMAKER WHICH IS EVIDENT ON CHEST XRAY COMPLETED TODAY IN ED. STRICT I&O'S HAVE BEEN ORDERED WITH DAILY WEIGHT. ALL SAFETY AND FALL PRECAUTION MEASURES ARE IN PLACE. CALL LIGHT AND PERSONAL ITEMS ARE WITHIN REACH AT ALL TIMES. WILL CONTINUE TO MONITOR AND ASSESS.
[2019-12-08 20:58] VITALS: BP 123/69
[2019-12-08] MEDS: MIRTAZAPINE 15 MG TABLET PO SCH (22:35)
[2019-12-09 00:48] VITALS: BP 98/57
--- NOTE | 2019-12-09 05:00 | NUR ---
Patient slept throughout night with no complaints of pain or discomfort verbalized or noted/observed by this nurse. All prescribed medications provided as ordered and tolerated well, with no adverse side effects verbalized by patient or noted/observed by this nurse. All safety and fall precaution measures remain in place. Call light and personal items remain within reach.
[2019-12-09 05:51] VITALS: BP 118/63
[2019-12-09 06:31] LABS: BASOPHILS # (AUTO) 0.1 K/uL (0.0-8.0); BASOPHILS % (AUTO) 2.8 % (0.0-2.0); EOSINOPHILS # (AUTO) 0.7 K/uL (0.0-0.7); EOSINOPHILS % (AUTO) 14.5 % (0.0-7.0); HEMATOCRIT 26.6 % (31.2-41.9); HEMOGLOBIN 8.6 g/dL (10.9-14.3); LYMPHOCYTES # (AUTO) 1.3 K/uL (20.0-40.0); LYMPHOCYTES % (AUTO) 28.2 % (20.5-51.5); MEAN CORPUSCULAR HEMOGLOBIN 27.2 uug (24.7-32.8); MEAN CORPUSCULAR HGB CONC 32 g/dL (32.3-35.6); MEAN CORPUSCULAR VOLUME 84.4 fL (75.5-95.3); MONOCYTES # (AUTO) 0.5 K/uL (2.0-10.0); MONOCYTES % (AUTO) 11.3 % (0.0-11.0); NEUTROPHILS % (AUTO) 43.2 % (38.5-71.5); PLATELET COUNT (AUTO) 180 K/uL (179-408); RED BLOOD CELL COUNT(AUTO) 3.15 MIL/uL (3.63-4.92); WHITE BLOOD COUNT (AUTO) 4.6 K/uL (3.8-11.8)
[2019-12-09 06:37] LABS: CARBON DIOXIDE 29 mmol/L (21-32); CHLORIDE 109 mmol/L (98-107); CHOLESTEROL 169 mg/dL (<200); CREATININE 1.4 mg/dL (0.6-1.3); GLUCOSE 88 mg/dL (74-106); HDL CHOLESTEROL 72 mg/dL (40-60); MAGNESIUM 2.1 mg/dL (1.8-2.4); PHOSPHOROUS 3.5 mg/dL (2.5-4.9); POTASSIUM 3.6 mmol/L (3.5-5.1); TRIGLYCERIDES 73 MG/DL (30-150); UREA NITROGEN, BLOOD 19 mg/dL (7-18)
[2019-12-09 06:46] LABS: THYROID STIMULATING HORMONE 0.866 mIU/mL (0.358-3.740)
[2019-12-09] MEDS: BENAZEPRIL HCL 5 MG TABLET PO SCH (09:10)
[2019-12-09] MEDS: MEMANTINE HCL 10 MG TABLET PO SCH ×2 (09:11→17:17)
[2019-12-09] MEDS: DONEPEZIL 10 MG TABLET PO SCH (09:11)
[2019-12-09] MEDS: APIXABAN 5 MG TABLET PO SCH ×2 (09:14→20:08)
[2019-12-09 11:38] VITALS: BP 96/54
[2019-12-09 16:06] VITALS: BP 124/64
[2019-12-09] MEDS: CEFTRIAXONE 1 G in IV DEXTROSE 5% 50 ML IV SCH (17:17)
--- NOTE | 2019-12-09 19:00 | NUR ---
Patient alert but forgetful, no sob no chest pain noted. Patient has no complain of pain at this time. Patient continent of bladder, assisted with toileting. cont to monitor.
[2019-12-09 20:14] VITALS: BP 96/50
[2019-12-09] MEDS: MIRTAZAPINE 15 MG TABLET PO SCH (20:53)
--- NOTE | 2019-12-09 20:53 | NUR ---
patient too sleepy remeron medication held. cont to monitor.
[2019-12-10 05:18] VITALS: BP 109/55
[2019-12-10 05:59] LABS: BASOPHILS # (AUTO) 0.1 K/uL (0.0-8.0); BASOPHILS % (AUTO) 2.3 % (0.0-2.0); EOSINOPHILS # (AUTO) 0.5 K/uL (0.0-0.7); EOSINOPHILS % (AUTO) 10.9 % (0.0-7.0); HEMATOCRIT 25.5 % (31.2-41.9); HEMOGLOBIN 8.2 g/dL (10.9-14.3); LYMPHOCYTES # (AUTO) 1.3 K/uL (20.0-40.0); LYMPHOCYTES % (AUTO) 28.3 % (20.5-51.5); MEAN CORPUSCULAR HEMOGLOBIN 26.8 uug (24.7-32.8); MEAN CORPUSCULAR HGB CONC 32 g/dL (32.3-35.6); MEAN CORPUSCULAR VOLUME 83.9 fL (75.5-95.3); MONOCYTES # (AUTO) 0.4 K/uL (2.0-10.0); MONOCYTES % (AUTO) 8.6 % (0.0-11.0); NEUTROPHILS # (AUTO) 2.2 K/uL (1.8-8.9); NEUTROPHILS % (AUTO) 49.9 % (38.5-71.5); PLATELET COUNT (AUTO) 177 K/uL (179-408); RED BLOOD CELL COUNT(AUTO) 3.04 MIL/uL (3.63-4.92); WHITE BLOOD COUNT (AUTO) 4.5 K/uL (3.8-11.8)
[2019-12-10 06:10] LABS: CARBON DIOXIDE 28 mmol/L (21-32); CHLORIDE 110 mmol/L (98-107); CREATININE 1.4 mg/dL (0.6-1.3); GLUCOSE 94 mg/dL (74-106); POTASSIUM 3.5 mmol/L (3.5-5.1); UREA NITROGEN, BLOOD 17 mg/dL (7-18)
--- NOTE | 2019-12-10 06:34 | NUR ---
Patient alert awake, no sob no chest pain. Patient bp stable, assisted with toileting, no complain of pain. cont to monitor.
--- NOTE | 2019-12-10 07:00 | NUR ---
AWAKE ALERT AND ABLE TO FOLLOW-UP INSTRUCTION, DENIES ACUTE PAIN OR SOB. AWAITING PLACEMENT
[2019-12-10] MEDS: MEMANTINE HCL 10 MG TABLET PO SCH ×2 (08:19→16:18)
[2019-12-10] MEDS: DONEPEZIL 10 MG TABLET PO SCH (08:19)
[2019-12-10] MEDS: BENAZEPRIL HCL 5 MG TABLET PO SCH (08:19)
[2019-12-10] MEDS: APIXABAN 5 MG TABLET PO SCH ×2 (08:21→20:35)
[2019-12-10 11:13] VITALS: BP 95/45
--- NOTE | 2019-12-10 12:00 | NUR ---
NO ACUTE CHANGE FROM BASELINE ASSESSMENT
[2019-12-10 15:37] VITALS: BP 90/49
--- NOTE | 2019-12-10 15:44 | NUR ---
RESTING COMFORTABLY IN BED DENIES PAIN OR SOB. VERY PLEASANT AND COOPERATIVE. AFEBRILE
[2019-12-10] MEDS: CEFTRIAXONE 1 G in IV DEXTROSE 5% 50 ML IV SCH (16:34)
--- NOTE | 2019-12-10 19:00 | NUR ---
Patient alert but forgetful, no sob no chest pain. Patient has no complain of pain at this time. Patient assisted with toileting, v/s stable, cont to monitor.
[2019-12-10 20:03] VITALS: BP 104/49
[2019-12-10] MEDS: MIRTAZAPINE 15 MG TABLET PO SCH (20:36)
[2019-12-11 05:22] VITALS: BP 110/54
--- NOTE | 2019-12-11 05:59 | NUR ---
PATIENT ALERT BUT FORGETFUL, ASSISTED WITH TOILETING. PATIENT ASSISTED WITH TOILETING, V/S STABLE , CONT TO MONITOR.
[2019-12-11 06:10] LABS: BASOPHILS # (AUTO) 0.1 K/uL (0.0-8.0); BASOPHILS % (AUTO) 1.3 % (0.0-2.0); EOSINOPHILS # (AUTO) 0.7 K/uL (0.0-0.7); HEMATOCRIT 24.6 % (31.2-41.9); HEMOGLOBIN 7.9 g/dL (10.9-14.3); LYMPHOCYTES # (AUTO) 1.4 K/uL (20.0-40.0); LYMPHOCYTES % (AUTO) 25.7 % (20.5-51.5); MEAN CORPUSCULAR HEMOGLOBIN 26.9 uug (24.7-32.8); MEAN CORPUSCULAR HGB CONC 32 g/dL (32.3-35.6); MEAN CORPUSCULAR VOLUME 83.6 fL (75.5-95.3); MONOCYTES # (AUTO) 0.5 K/uL (2.0-10.0); NEUTROPHILS # (AUTO) 2.8 K/uL (1.8-8.9); PLATELET COUNT (AUTO) 173 K/uL (179-408); RED BLOOD CELL COUNT(AUTO) 2.94 MIL/uL (3.63-4.92); WHITE BLOOD COUNT (AUTO) 5.5 K/uL (3.8-11.8)
[2019-12-11 06:16] LABS: CARBON DIOXIDE 27 mmol/L (21-32); CHLORIDE 111 mmol/L (98-107); CREATININE 1.4 mg/dL (0.6-1.3); GLUCOSE 90 mg/dL (74-106); POTASSIUM 4.1 mmol/L (3.5-5.1); UREA NITROGEN, BLOOD 18 mg/dL (7-18)
[2019-12-11] MEDS: APIXABAN 5 MG TABLET PO SCH (08:18)
[2019-12-11] MEDS: MEMANTINE HCL 10 MG TABLET PO SCH ×2 (08:19→16:23)
[2019-12-11] MEDS: DONEPEZIL 10 MG TABLET PO SCH (08:19)
[2019-12-11] MEDS: BENAZEPRIL HCL 5 MG TABLET PO SCH (08:21)
--- NOTE | 2019-12-11 08:30 | NUR ---
PATIENT IS AWAKE ALERT HARD OF HEARING BUT COOPERATIVE COMPLIANT WITH HER MEDICATIONS AND CARE SHE BED ALARM IS IN USE FOR SAFETY CHECKED ON HOURLY ROUNDS BLOOD PRESSURE IS 102/51 AT THIS TIME SHE IS EATING B/FAST WILL HOLD OFF ON HER LOTENSIN WILL CONFIRM WITH THE HOISTER ON THE PARAM[employer]ERS FOR GIVING OR HOLDING THEI MEDICATION.
--- NOTE | 2019-12-11 09:45 | NUR ---
PATIENT SEEN AND EXAMINED BY AYESHA SELLERS SUPERVISOR DECORATING WITH ORDER TO DISCHARGE PATIENT HOME TODAY AND NOTED
--- NOTE | 2019-12-11 11:00 | NUR ---
CALLED THE BUSINESS OBJECTS ARCHITECT AT [facility] AND NOTIFIED HIM THAT PATIENT HAS AN ORDER TO DISCHARGE HOME WITH HOME HEALTH STATED [facility] WILL WORK ON THAT AND WILL LET ME KNOW.
--- NOTE | 2019-12-11 11:15 | NUR ---
DR NGUYEN HERE AND SEEN PATIENT NOTIFIED HIM THAT I HEL HER LOTENSIN TODAY STATED TO INSTRUCT THE FAMILY TO HOLD IT FOR NOW BASED ON THE FACT THAT HER BLOOD PRESSURE HAS BEEN LOW STATED TH HAVE THE SON FOLLOW UP WITH THE PATIENTS PRIMARY /METAL ALLOY SCIENTIST WITHIN THE NEXT ONE TO TWO WEEKS.
[2019-12-11 11:21] VITALS: BP 132/63
--- NOTE | 2019-12-11 13:00 | NUR ---
CALLED AND NOTIFIED PATIENTS SON THAT PATIENT HAS BEEN DISCHARGED AWAITING FOR THE PRODUCE BUYER TO COMPLETE ARRANGEMENTS ON THE HOME HEALTH STATED [employer] WILL LET ME KNOW WHICH HOME HEALTH HE WILL ASSIGN TO THIS PATIENT.
[2019-12-11 15:36] VITALS: BP 112/56
--- NOTE | 2019-12-11 16:51 | NUR ---
RECEIVED A MESSAGE FROM THE CORRUGATOR MACHINE OPERATOR JOSHUA STATED THAT PATIENT HOME HEALTH IS [place] NO PHONE NUMBER PROVIDED PATIENTS SON NOTIFIED THAT PATIENT WILL BE READY FOR DISCHARGE IN A LITTLE BIT STATED [facility] WILL SENIOR BIOSTATISTICIAN/GROUP LEADER.
--- NOTE | 2019-12-11 18:16 | NUR ---
PATIENT IS BEING PREPPED FOR DISCHARGE HEP LOCK REMOVED WILL INSTRUCT HER SON TANA WHEN HE COMES TO PICK HER UP SOON POSSIBLE.
--- NOTE | 2019-12-11 18:35 | NUR ---
PATIENTS SON TANA HERE TO PULLER OVER PATIENT DISCHARGE INSTRUCTIONS GIVEN TO HIM FOR CONTINUING CARE HE WAS ALSO INSTRUCTED FOR PATIENT TO STOP TAKING LOTENSIN LASIX AND POTASSIUM AND TO CALL HER PRIMARY DOCTOR FOR A FOLLOW UP APPOINTMENT WITHIN THE NEXT ONE TO TWO WEEKS AND HE EXPRESSED UNDERSTANDING
== END 2019-12-11 18:35 | disposition home health service (06) | DRG 280 ==
LOC: ER 15:31 → TELE3 20:31 → CSC3 12-09 19:40 → MEDSURG3 12-09 19:53
PROVIDERS: ADMIT Nurse Practitioner Acute Care; ATTEND Nurse Practitioner Acute Care
DX: I21.4 Non-ST elevation (NSTEMI) myocardial infarction (principal); G93.41 Metabolic encephalopathy; N17.0 Acute kidney failure with tubular necrosis; D68.69 Other thrombophilia; E87.2 Acidosis; I50.22 Chronic systolic (congestive) heart failure; I42.8 Other cardiomyopathies; E86.0 Dehydration; D63.8 Anemia in other chronic diseases classified elsewhere; I25.10 Atherosclerotic heart disease of native coronary artery without angina pectoris; I27.20 Pulmonary hypertension, unspecified; I48.0 Paroxysmal atrial fibrillation; M19.90 Unspecified osteoarthritis, unspecified site; I44.7 Left bundle-branch block, unspecified; I25.2 Old myocardial infarction; I11.0 Hypertensive heart disease with heart failure; F03.90 Unspecified dementia, unspecified severity, without behavioral disturbance, psychotic disturbance, mood disturbance, and anxiety; Z79.01 Long term (current) use of anticoagulants; D17.9 Benign lipomatous neoplasm, unspecified; T50.2X5A Adverse effect of carbonic-anhydrase inhibitors, benzothiadiazides and other diuretics, initial encounter; Y92.89 Other specified places as the place of occurrence of the external cause; R74.8 Abnormal levels of other serum enzymes; Z95.0 Presence of cardiac pacemaker
CPT/HCPCS: 36415; 70030-TC; 70450; 71045; 83605; 83690; 83735; 84100; 84443; 85025; 85730; 87040; 93005; A4663; G0378; J0696; J7030; J7040; J7060